=== PATIENT | female | born 1930 | race Caucasian/White ===

== ENCOUNTER 2017-06-04 16:30 | Outpatient (CLI) | payer MEDICARE, OTHER | END 2017-06-04 16:31 | disposition critical access hospital (66) | LOC: EMS 16:30 | PROVIDERS: ATTEND Surgery | DX: R07.9 Chest pain, unspecified (principal) | CPT/HCPCS: A0425; A0427 ==

== ENCOUNTER 2017-06-04 17:07 | Emergency (ER) | payer MEDICARE, OTHER ==
--- NOTE | 2017-06-04 17:27 | ED Physician Documentation ---
PD HPI CHEST PAIN - Stated complaint Stated Complaint: CP - Chief complaint Chief Complaint: Cardiac - History obtained from History obtained from: Patient, Family, EMS - History of Present Illness Timing - onset: Other (This is an 86-year-old woman who since last night is having positional lightheadedness worse when she stands up. Today she has had on and off chest pressure not associated with shortness of breath or pain per se. She does have a mild frontal headache with this. 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 HEENT: Other - Present Medications Home Medications: Ambulatory Orders Medication Instructions Recorded Confirmed Albuterol Sulfate [Proair Hfa 1 - 2 puffs INH Q4H PRN 08/19/16 06/04/17 Inhaler] Fluticasone/Salmeterol [Advair 1 each IH DAILY 08/19/16 06/04/17 250-50 Diskus] Levalbuterol [Xopenex] 1.25 mg INH Q4H PRN #0 neb 08/20/16 06/04/17 Nitroglycerin [Nitrostat] 0.4 mg SL Q5MIN PRN #2 tablet 08/20/16 06/04/17 Saccharomyces Boulardii [Florastor] 250 mg PO BID 10 Days 08/20/16 06/04/17 levoFLOXacin [Levaquin] 250 mg PO DAILY #8 tablet 08/20/16 06/04/17 prednisoLONE 1% OPHTH DROPS [Pred 1 drops LEFTEYE Q4H 08/20/16 06/04/17 Forte 1% Ophth Drops] prednisoLONE 1% OPHTH DROPS [Pred 1 drops LEFTEYE Q4H bottle 08/20/16 06/04/17 Forte 1% Ophth Drops] - Allergies Allergies/Adverse Reactions: Allergies Allergy/AdvReac Type Severity Reaction Status Date / Time Penicillins Allergy Edema Verified 06/04/17 17:11 - Social History Does the pt smoke?: No Smoking Status: Never smoker Does the pt drink ETOH?: No Does the pt have substance abuse?: No - Immunizations Immunizations are current?: No Immunizations: TDAP >10years/unknown PD ED PE NORMAL - Vitals Vital signs reviewed: Yes - General General: Alert and oriented X 3, No acute distress - HEENT HEENT: PERRL, EOMI - Neck Neck: Supple, no meningeal sign, No bony TTP - Cardiac Cardiac: RRR, No murmur - Respiratory Respiratory: No respiratory distress, Clear bilaterally - Abdomen Abdomen: Soft, Non tender - Back Back: No CVA TTP, No spinal TTP - Derm Derm: Normal color, Warm and dry - Extremities Extremities: No edema, No calf tenderness / cord - Neuro Neuro: Alert and oriented X 3, No motor deficit, No sensory deficit, Normal speech - Psych Psych: Normal mood, Normal affect Results - Vitals Vitals: Vital Signs - 24 hr 06/04/17 06/04/17 06/04/17 17:08 17:38 18:22 Temperature 36.4 C L Heart Rate 69 67 65 Respiratory 20 14 18 Rate Blood Pressure 185/80 H 166/62 H 201/79 H Blood Pressure 167/82 H [Left] Blood Pressure 164/74 H [Right] O2 Saturation 95 98 98 Oxygen O2 Source Room air - EKG (time done) 1718 Rate: Rate (enter#) (64) Rhythm: NSR [place]: Normal Intervals: Normal HI QRS: Normal Ischemia: Normal ST segments Computer interpretation: Agree with computer - Labs Labs: Laboratory Tests 06/04/17 06/04/17 06/04/17 17:35 17:35 17:35 WBC 5.6 RBC 4.61 Hgb 13.2 Hct 39.5 MCV 85.7 MCH 28.6 MCHC 33.4 RDW 14.6 Plt Count 216 MPV 8.9 Neut # 3.2 Lymph # 1.6 Glascock # 0.5 Eos # 0.2 Baso # 0.1 Absolute Nucleated RBC 0.00 Nucleated RBCs 0.0 Sodium 141 Potassium 3.9 Chloride 103 Carbon Dioxide 32 Anion Gap 6.0 BUN 17 Creatinine 0.8 Estimated GFR (MDRD) 68 L Glucose 88 Calcium 9.4 Total Bilirubin 0.8 AST 24 ALT 18 Alkaline Phosphatase 68 Troponin I < 0.04 Total Protein 7.0 Albumin 4.1 Globulin 2.9 Albumin/Globulin Ratio 1.4 Lipase 52 H - Rads (name of study) 2v chest Radiology: EMP read contemporaneously (Chronic RML opacities) Ct head Radiology: EMP read contemporaneously (atrophy NAD) PD MEDICAL DECISION MAKING - ED course Complexity details: reviewed old records (Admission for similar symptoms in August of last year without pertinent findings, she says she followed up with a vessel crew member after that without a specific diagnosis.) ED course: 86-year-old woman with some disequilibrium and dizziness with mild chest pressure. Workup in the emergency department consisted of a head CT, chest x- ray, and labs without abnormal findings. Her chest pressure resolved and she walked up and down the hallway without unsteadiness. We discussed potentially an observation stay for serial enzymes and MRI which the patient refused. She will return if worse. Departure - Departure Disposition: Home, Self Care Clinical Impression: Near syncope Chest pain Qualifiers: Chest pain type: unspecified Qualified Code(s): R07.9 - Chest pain, unspecified Condition: Good Record reviewed to determine appropriate education?: Yes Instructions: ED Chest Pain Atypical Unkn Cause Comments: Return immediately if pain recurs or if you have other new symptoms or worsen in any way. Otherwise follow-up with your physician, next available appointment. Your blood pressure was elevated today on check into the emergency department. This does not mean that you have hypertension, it is a common phenomenon to come to the emergency department and have elevated blood pressure. I recommend that she see her primary care physician within the week to have it rechecked when you are feeling better.
[2017-06-04 17:44] LABS: BASOPHILS # (AUTO) 0.1 10^3/uL (0.0-0.1); BASOPHILS % (AUTO) 0.9 %; EOSINOPHILS # (AUTO) 0.2 10^3/uL (0.0-0.7); EOSINOPHILS % (AUTO) 3.9 %; HCT - HEMATOCRIT 39.5 % (37.0-47.0); HGB - HEMOGLOBIN 13.2 g/dL (12.0-16.0); LYMPHOCYTES # (AUTO) 1.6 10^3/uL (1.5-3.5); LYMPHOCYTES % (AUTO) 28.3 %; MEAN CORPUSCULAR HEMOGLOBIN 28.6 pg (27.0-31.0); MEAN CORPUSCULAR HGB CONC 33.4 g/dL (32.0-36.0); MEAN CORPUSCULAR VOLUME 85.7 fL (81.0-99.0); MEAN PLATELET VOLUME 8.9 fL (7.9-10.8); MONOCYTES # (AUTO) 0.5 10^3/uL (0.0-1.0); MONOCYTES % (AUTO) 9.6 %; NEUTROPHILS # (AUTO) 3.2 10^3/uL (1.5-6.6); NEUTROPHILS % (AUTO) 57.3 %; RED BLOOD COUNT 4.61 10^6/uL (4.20-5.40); RED CELL DISTRIBUTION WIDTH 14.6 % (12.0-15.0); UNCORRECTED WHITE BLOOD COUNT 5.6 x10^3/uL; WHITE BLOOD COUNT 5.6 x10^3/uL (4.8-10.8)
[2017-06-04 17:55] LABS: ALBUMIN/GLOBULIN RATIO 1.4 (1.0-2.2); BILIRUBIN,TOTAL 0.8 mg/dL (0.2-1.0); CALCIUM 9.4 mg/dL (8.5-10.3); CREATININE 0.8 mg/dL (0.4-1.0); POTASSIUM 3.9 mmol/L (3.5-5.0)
--- NOTE | 2017-06-04 18:35 | XRAY Preliminary Report ---
Exam: XR Chest 2 View PA/LAT IMPRESSION: No acute abnormalities or interval change. Chronic right middle lobe opacities noted. [facility] SITE ID: [id number]
--- NOTE | 2017-06-04 18:38 | CT Preliminary Report ---
Exam: CT Head W/O IMPRESSION: Stable age-related cortical atrophic changes without evidence of acute intracranial abnor mality. [facility] SITE ID: [id number]
--- NOTE | 2017-06-04 18:38 | XRAY Report ---
EXAM: CHEST RADIOGRAPHY EXAM DATE: 06/04/2017 06:06 PM. CLINICAL HISTORY: Chest pain. COMPARISON: 08/19/2016. TECHNIQUE: 2 views. FINDINGS: Lungs/Pleura: Chronic right middle lobe opacities, otherwise no focal opacities evident. No pleural e ffusion. No pneumothorax. Normal volumes. Mediastinum: Heart and mediastinal contours are unremarkable. Other: The patient has had right breast surgery. No compression fractures. IMPRESSION: No acute abnormalities or interval change. Chronic right middle lobe opacities noted. [facility] Referring Provider Line: [phone] SITE ID: [id number]
--- NOTE | 2017-06-04 18:40 | CT Report ---
EXAM: CT HEAD EXAM DATE: 06/04/2017 06:15 PM. CLINICAL HISTORY: Dizzy since yesterday. COMPARISON: 02/21/2008. TECHNIQUE: Multiaxial CT images were obtained from the foramen magnum to the vertex. IV contrast: Non e. Reformats: Coronal. In accordance with CT protocol optimization, one or more of the following dose reduction techniques w ere utilized for this exam: automated exposure control, adjustment of mA and/or KV based on patient s ize, or use of iterative reconstructive technique. FINDINGS: Parenchyma: No intraparenchymal hemorrhage. No evidence of mass, midline shift, or CT findings of acu te infarction. Christy-white differentiation is distinct. Extraaxial Spaces: Normal for age. No subdural or epidural collections identified. Ventricles: The ventricles and cortical sulci are prominent, consistent with age-related tissue loss. Sinuses: Imaged paranasal sinuses, orbits, and mastoids show no significant abnormality. Bones: No evidence of fracture or calvarial defect. Other: Stable mild chronic microangiopathic white matter changes are evident. IMPRESSION: Stable age-related cortical atrophic changes without evidence of acute intracranial abnor mality. [facility] Referring Provider Line: [phone] SITE ID: [id number]
[2017-06-04 19:39] VITALS: BP 175/91
== END 2017-06-04 19:39 | disposition home or self-care (01) ==
LOC: EDUNIT# → ED 17:07
DX: R55 Syncope and collapse (principal); R07.9 Chest pain, unspecified; R03.0 Elevated blood-pressure reading, without diagnosis of hypertension
CPT/HCPCS: 36415; 70450; 71020; 80053; 81001; 81003; 83690; 84484; 85025; 87086; 93005; 99284; 99285

== ENCOUNTER 2017-10-13 18:39 | Emergency (ER) | payer MEDICARE, OTHER ==
[2017-10-13 19:33] LABS: UA w/ MICROSCOPIC CHARGE YES
[2017-10-13] MEDS ORDERED: SODIUM CHLORIDE 0.9% 1,000 ML IV ONE (21:05)
[2017-10-13 21:41] LABS: BASOPHILS % (AUTO) 0.3 %; EOSINOPHILS # (AUTO) 0.2 10^3/uL (0.0-0.7); EOSINOPHILS % (AUTO) 1.2 %; HCT - HEMATOCRIT 37.2 % (37.0-47.0); HGB - HEMOGLOBIN 12.1 g/dL (12.0-16.0); LYMPHOCYTES # (AUTO) 0.9 10^3/uL (1.5-3.5); LYMPHOCYTES % (AUTO) 6.8 %; MEAN CORPUSCULAR HEMOGLOBIN 27.8 pg (27.0-31.0); MEAN CORPUSCULAR HGB CONC 32.5 g/dL (32.0-36.0); MEAN CORPUSCULAR VOLUME 85.7 fL (81.0-99.0); MONOCYTES # (AUTO) 1.2 10^3/uL (0.0-1.0); MONOCYTES % (AUTO) 9.2 %; NEUTROPHILS # (AUTO) 10.4 10^3/uL (1.5-6.6); NEUTROPHILS % (AUTO) 82.5 %; RED BLOOD COUNT 4.34 10^6/uL (4.20-5.40); RED CELL DISTRIBUTION WIDTH 14.1 % (12.0-15.0); UNCORRECTED WHITE BLOOD COUNT 12.6 x10^3/uL; WHITE BLOOD COUNT 12.6 x10^3/uL (4.8-10.8)
[2017-10-13 21:46] LABS: CALCIUM 8.9 mg/dL (8.5-10.3); CREATININE 0.7 mg/dL (0.4-1.0); POTASSIUM 3.9 mmol/L (3.5-5.0)
[2017-10-13] MEDS ORDERED: IOPAMIDOL-300 100 ML VIAL ONE (21:55)
[2017-10-13] MEDS ORDERED: IOPAMIDOL-300 100 ML VIAL IVP ONE (22:09)
--- NOTE | 2017-10-13 22:42 | CT Preliminary Report ---
Exam: CT ABDOMEN/PELVIS ANGIO IMPRESSION: 1. No aortic aneurysm or dissection. 2. 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 3. Sigmoid diverticulitis. No abscess seen. 4. Small hiatal hernia. 5. Mild left lower lobe infiltrate. [facility] SITE ID: [id number]
--- NOTE | 2017-10-13 22:45 | CT Report ---
EXAM: CT ANGIOGRAM ABDOMEN AND PELVIS WITH CONTRAST EXAM DATE: 10/13/2017 10:12 PM. CLINICAL HISTORY: Abdominal pain and back pain. COMPARISONS: 12/10/2012 and 12/10/2012. TECHNIQUE: Routine helical CT angiogram imaging was performed through the abdomen and pelvis in the a rterial phase. IV contrast: 100ML ISOVUE 300. Enteric contrast: No. Reconstructions: Coronal, sagitta l, and 3D MIP reconstructions. In accordance with CT protocol optimization, one or more of the following dose reduction techniques w ere utilized for this exam: automated exposure control, adjustment of mA and/or KV based on patient s ize, or use of iterative reconstructive technique. FINDINGS: Vasculature: There is mild atherosclerosis. No abdominal aortic aneurysm or dissection is seen. No si gnificant stenosis is seen in the celiac axis, superior mesenteric artery, left renal artery, inferio r mesenteric artery, or bilateral iliac arteries. There is moderate stenosis at the origin of the rig ht renal artery. Lung Bases: Bibasilar atelectasis or scarring. Mild left lower lobe infiltrate. Small hiatal hernia. Abdominal Solid Organs: No focal lesions are seen in the liver, spleen, pancreas, adrenals, or kidney s on these arterial phase images. Status post cholecystectomy. Peritoneal Cavity: There are colonic diverticula. Sigmoid diverticulitis is seen. No diverticular abs cess is identified. No bowel obstruction is seen. No free air is identified. There is trace free flui d in the pelvis. No lymphadenopathy is seen. There is moderate stool in the colon, right greater than left. Appendix is not well seen. No evidence of appendicitis is noted. Pelvic Organs: Uterus is surgically absent. Visualized pelvic organs are otherwise unremarkable. Bones: Osteopenia. Degenerative changes and scoliosis in the spine. Other: None. IMPRESSION: 1. No aortic aneurysm or dissection. 2. 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 3. Sigmoid diverticulitis. No abscess seen. 4. Small hiatal hernia. 5. Mild left lower lobe infiltrate. [facility] Referring Provider Line: [phone] SITE ID: [id number]
[2017-10-13] MEDS ORDERED: CIPROFLOXACIN 250 MG TABLET PO STA (22:54)
[2017-10-13] MEDS ORDERED: metroNIDAZOLE 250 MG TABLET PO STA (22:54)
[2017-10-13 23:01] VITALS: BP 143/79
--- NOTE | 2017-10-13 23:09 | ED Physician Documentation ---
History of Present Illness - Stated complaint Stated Complaint: FEMALE - Chief complaint Chief Complaint: General - History obtained from History obtained from: Patient (p-t is here for lower abdominal pain and back pain. she staes that 2 weeks ago she had the start of the symptoms, She was diagnosed with a UTI by her primary care provider and was given ABX. She staes that her symptoms did not get better. she was then given another ABX which also did not help. she did not know the medications. she states she took a medication from the pharmacy today for the pain. no fevers, no nausea or vomiting.) Review of Systems Constitutional: denies: Fever, Chills Cardiac: denies: Chest pain / pressure Respiratory: denies: Dyspnea, Cough, Hemoptysis GI: reports: Abdominal Pain. denies: Nausea, Vomiting, Constipation, Diarrhea, Bloody / black stool : reports: Frequency. denies: Unable to Void, Incontinent, Hematuria, Vaginal bleeding Skin: denies: Rash, Lesions, Laceration (s) Musculoskeletal: reports: Back pain. 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 HEENT: Other - Present Medications Home Medications: Ambulatory Orders Medication Instructions Recorded Confirmed Albuterol Sulfate [Proair Hfa 1 - 2 puffs INH Q4H PRN 08/19/16 10/13/17 Inhaler] Fluticasone/Salmeterol [Advair 1 each IH DAILY 08/19/16 10/13/17 250-50 Diskus] Nitroglycerin [Nitrostat] 0.4 mg SL Q5MIN PRN #2 tablet 08/20/16 10/13/17 prednisoLONE 1% OPHTH DROPS [Pred 1 drops LEFTEYE Q4H 08/20/16 10/13/17 Forte 1% Ophth Drops] Ciprofloxacin HCl [Cipro] 500 mg PO BID #20 tablet 10/13/17 Metronidazole [Flagyl] 500 mg PO BID #20 tablet 10/13/17 - Allergies Allergies/Adverse Reactions: Allergies Allergy/AdvReac Type Severity Reaction Status Date / Time Penicillins Allergy Edema Verified 06/04/17 17:11 - Social History Does the pt smoke?: No Smoking Status: Never smoker Does the pt drink ETOH?: No Does the pt have substance abuse?: No - Immunizations Immunizations are current?: No Immunizations: TDAP >10years/unknown PD ED PE NORMAL - Vitals Vital signs reviewed: Yes - General General: Alert and oriented X 3, No acute distress, Well developed/nourished - Cardiac Cardiac: RRR, No murmur - Respiratory Respiratory: No respiratory distress, Clear bilaterally - Abdomen Abdomen: Soft, Non tender, Non distended - Back Back: No CVA TTP - Derm Derm: Normal color, No rash - Extremities Extremities: No deformity, No calf tenderness / cord - Neuro Neuro: Alert and oriented X 3 Eye Opening: Spontaneous Motor: Obeys Commands Verbal: Oriented GCS Score: 15 - Psych Psych: Normal mood, Normal affect Results - Vitals Vitals: Vital Signs - 24 hr 10/13/17 10/13/17 10/13/17 18:57 20:28 22:03 Temperature 37.2 C Heart Rate 86 85 86 Respiratory 17 22 17 Rate Blood Pressure 160/88 H 149/78 H 145/78 H O2 Saturation 97 94 95 10/13/17 23:00 Temperature Heart Rate 94 Respiratory 16 Rate Blood Pressure 143/79 H O2 Saturation 96 Oxygen O2 Source Room air - Labs Labs: Laboratory Tests 10/13/17 10/13/17 10/13/17 18:50 21:27 21:27 WBC 12.6 H RBC 4.34 Hgb 12.1 Hct 37.2 MCV 85.7 MCH 27.8 MCHC 32.5 RDW 14.1 Plt Count 256 MPV 9.0 Neut # 10.4 H Lymph # 0.9 L Cottle # 1.2 H Eos # 0.2 Baso # 0.0 Absolute Nucleated RBC 0.00 Nucleated RBC % 0.0 Sodium 137 Potassium 3.9 Chloride 99 L Carbon Dioxide 30 Anion Gap 8.0 BUN 15 Creatinine 0.7 Estimated GFR (MDRD) 80 L Glucose 123 H Lactic Acid Calcium 8.9 Urine Color ORANGE Urine Clarity CLEAR Urine pH Ur Specific [place] Urine Protein Urine Glucose (UA) Urine Ketones Urine Occult Blood Urine Nitrite Urine Bilirubin Urine Urobilinogen Ur Leukocyte Esterase Urine RBC 0-5 Urine WBC 4-5 Ur Squamous Epith Cells NONE SEEN Urine Bacteria None Seen Ur Microscopic Review INDICATED Urine Culture Comments Not Reportable 10/13/17 21:27 WBC RBC Hgb Hct MCV MCH MCHC RDW Plt Count MPV Neut # Lymph # Cottle # Eos # Baso # Absolute Nucleated RBC Nucleated RBC % Sodium Potassium Chloride Carbon Dioxide Anion Gap BUN Creatinine Estimated GFR (MDRD) Glucose Lactic Acid 0.8 Calcium Urine Color Urine Clarity Urine pH Ur Specific [place] Urine Protein Urine Glucose (UA) Urine Ketones Urine Occult Blood Urine Nitrite Urine Bilirubin Urine Urobilinogen Ur Leukocyte Esterase Urine RBC Urine WBC Ur Squamous Epith Cells Urine Bacteria Ur Microscopic Review Urine Culture Comments - Rads (name of study) CT abd/pelvis Radiology: Final report received, EMP read contemporaneously PD MEDICAL DECISION MAKING - ED course Complexity details: re-evaluated patient, considered differential, d/w patient, d/w family ED course: unable to perform UA because of the medication she took today. Pt did not know the prior ABX that she was on. CT positive for diverticulitis. pt has no blood in the stool. Clinically does not have PNA. discussed with the patient. Will treat with cipro and flagyl. Cipro should also cover any possible UTI. she was given return precautions. Pt expressed understanding. Departure - Departure Disposition: 01 Home, Self Care Clinical Impression: Diverticulitis Condition: Good Instructions: ED Diverticulitis Follow-Up: Pat Craven ARNP [Primary Care Provider] - Prescriptions: Ciprofloxacin HCl [Cipro] 500 mg PO BID #20 tablet Metronidazole [Flagyl] 500 mg PO BID #20 tablet Comments: take your medications as instructed. Call your primary care provider tomorrow for a follow up in the next week. Return to the ER for any new or worsening symptoms.
== END 2017-10-13 23:35 | disposition home or self-care (01) ==
LOC: ED 18:39
DX: K57.32 Diverticulitis of large intestine without perforation or abscess without bleeding (principal); J45.909 Unspecified asthma, uncomplicated
CPT/HCPCS: 36415; 74174; 80048; 81001; 83605; 85025; 96360; 99283; 99284; A9270; Q9967; 81003; 87086

== ENCOUNTER 2018-12-20 14:52 | Outpatient (CLI) | payer MEDICARE, OTHER ==
--- NOTE | 2018-12-20 17:19 | Ultrasound Report ---
Reason: NECK MASS,HOARSENESS OF VOICE Procedure Date: 12/20/2018 Accession Number: [id number] / [id number] Procedure: US - Head or Neck Soft Tissue CPT Code: FULL RESULT: EXAM: HEAD AND NECK SOFT TISSUE ULTRASOUND EXAM DATE: 12/20/2018 03:06 PM. CLINICAL HISTORY: NECK MASS,HOARSENESS OF VOICE. COMPARISON: None. TECHNIQUE: Real time sonographic imaging of the neck was performed by the ultrasonic hand solderer. Multiple business services representative static images were saved for review. FINDINGS: There are multiple prominent but not pathologically enlarged lymph nodes in the right neck with preserved morphology and fatty hilum. The largest measures 2.4 x 0.9 x 1.3 cm. Another prominent node measures 2.9 x 0.6 x 2.1 cm. The left neck was imaged for comparison with largest node measuring 3.1 x 0.7 x 1.1 cm. No additional lesion identified. No fluid collection. IMPRESSION: Prominent but not pathologically enlarged right neck lymph nodes with preserved morphology may be reactive. Recommend clinical follow-up. [facility]
== END 2018-12-20 14:53 | disposition home or self-care (01) ==
LOC: DI 14:52
PROVIDERS: ATTEND Family Medicine
DX: R59.0 Localized enlarged lymph nodes (principal); R49.0 Dysphonia; Z80.8 Family history of malignant neoplasm of other organs or systems
CPT/HCPCS: 76536

== ENCOUNTER 2019-09-04 14:52 | Outpatient (CLI) | payer MEDICARE, OTHER ==
--- NOTE | 2019-09-05 01:20 | Ultrasound Report ---
Reason: CERVICAL LYMPHADENOPATHY Procedure Date: 09/04/2019 Accession Number: [id number] / [id number] Procedure: US - Head or Neck Soft Tissue CPT Code: Final Report FULL RESULT: EXAM: NECK ULTRASOUND EXAM DATE: 09/04/2019 03:49 PM. CLINICAL HISTORY: CERVICAL LYMPHADENOPATHY. COMPARISON: HEAD OR NECK SOFT TISSUE 12/20/2018 3:06 PM. TECHNIQUE: Real-time sonographic imaging was performed by the medical device sales representative utilizing color-flow. Multiple patient representative static images were saved for review. FINDINGS: Normal size cervical lymph nodes are seen bilaterally, with normal morphology. No adenopathy. No significant interval change. IMPRESSION: Stable normal-appearing cervical lymph nodes. [facility]
== END 2019-09-04 14:53 | disposition home or self-care (01) ==
LOC: DI 14:52
PROVIDERS: ATTEND Physician Assistant
DX: R59.0 Localized enlarged lymph nodes (principal)
CPT/HCPCS: 76536

== ENCOUNTER 2019-09-04 15:47 | Emergency (ER) | payer MEDICARE, OTHER ==
[2019-09-04 15:57] VITALS: BP 141/90
--- NOTE | 2019-09-04 15:59 | ED Physician Documentation ---
PD HPI ABD PAIN - Stated complaint Stated Complaint: UNABLE TO DEFICATE - Chief complaint Chief Complaint: Abd Pain - History obtained from History obtained from: Patient - History of Present Illness Timing - onset: Other (She traveled to [place] about a week ago. Otherwise she is had no recent changes in her life or medications. She been having trouble with constipation. Had some small hard turds and then some liquid on Thursday. Other than that has not had a good bowel movement since despite taking prunes and bran muffins. No vomiting. 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 HEENT: Other - Present Medications Home Medications: Ambulatory Orders Medication Instructions Recorded Confirmed Albuterol Sulfate [Proair Hfa 1 - 2 puffs INH Q4H PRN 08/19/16 10/13/17 Inhaler] Fluticasone/Salmeterol [Advair 1 each IH DAILY 08/19/16 10/13/17 250-50 Diskus] Nitroglycerin [Nitrostat] 0.4 mg SL Q5MIN PRN #2 tablet 08/20/16 10/13/17 Ciprofloxacin HCl [Cipro] 500 mg PO BID #14 tablet 09/04/19 Lactulose [Generlac] 10 gm PO Q6H PRN #200 ml 09/04/19 Metronidazole [Flagyl] 500 mg PO TID #20 tablet 09/04/19 - Allergies Allergies/Adverse Reactions: Allergies Allergy/AdvReac Type Severity Reaction Status Date / Time Penicillins Allergy Edema Verified 09/04/19 15:53 - Social History Does the pt smoke?: No Smoking Status: Never smoker Does the pt drink ETOH?: No Does the pt have substance abuse?: No - Immunizations Immunizations are current?: No Immunizations: TDAP >10years/unknown PD ED PE NORMAL - Vitals Vital signs reviewed: Yes - General General: Alert and oriented X 3, No acute distress - Cardiac Cardiac: RRR, No murmur - Abdomen Abdomen: Normal bowel sounds, Soft, Non tender - Female Female : Other (Rectal and buttock exam done with Nicolasa RN, she had a little pimple that was expressed on the right buttock, no cellulitis. She had no fecal impaction.) - Neuro Neuro: Alert and oriented X 3, Normal speech - Psych Psych: Normal mood, Normal affect Results - Vitals Vitals: Vital Signs - 24 hr 09/04/19 15:51 Temperature 36.7 C Heart Rate 85 Respiratory 20 Rate Blood Pressure 141/90 H O2 Saturation 97 Oxygen O2 Source Room air PD MEDICAL DECISION MAKING - ED course ED course: She presents with constipation. No abdominal tenderness or fecal impaction. She is given magnesium citrate for that. There is also a buttock abscess. Quite small and was expressed fully during exam, placed on Cipro and Flagyl. Departure - Departure Disposition: 01 Home, Self Care Clinical Impression: Abscess of right buttock Constipation Qualifiers: Constipation type: unspecified constipation type Qualified Code(s): K59.00 - Constipation, unspecified Condition: Good Record reviewed to determine appropriate education?: Yes Instructions: ED Staph Infec Abx Tx Only, ED Constipation Prescriptions: Ciprofloxacin HCl [Cipro] 500 mg PO BID #14 tablet Lactulose [Generlac] 10 gm PO Q6H PRN #200 ml PRN Reason: Constipation Metronidazole [Flagyl] 500 mg PO TID #20 tablet Comments: Call your doctor to arrange a follow-up appointment, make the next available appointment. In the interim, return anytime if worse or if new symptoms develop.
[2019-09-04] MEDS ORDERED: metroNIDAZOLE 250 MG TABLET PO STA (16:08)
[2019-09-04] MEDS ORDERED: CIPROFLOXACIN 250 MG TABLET PO STA (16:08)
[2019-09-04] MEDS ORDERED: MAGNESIUM CITRATE 296 ML BOTTLE PO STA (16:08)
== END 2019-09-04 16:15 | disposition home or self-care (01) ==
LOC: ED 15:47
DX: K59.00 Constipation, unspecified (principal); L02.31 Cutaneous abscess of buttock; R59.0 Localized enlarged lymph nodes
CPT/HCPCS: 76536; 99282; 99283; A9270

== ENCOUNTER 2019-09-26 20:05 | Emergency (ER) | payer MEDICARE, OTHER ==
[2019-09-26 20:36] LABS: BASOPHILS % (AUTO) 0.5 %; EOSINOPHILS # (AUTO) 0.3 10^3/uL (0.0-0.7); EOSINOPHILS % (AUTO) 4.8 %; LYMPHOCYTES # (AUTO) 1.8 10^3/uL (1.5-3.5); LYMPHOCYTES % (AUTO) 27.2 %; MEAN CORPUSCULAR HEMOGLOBIN 28.6 pg (27.0-31.0); MEAN CORPUSCULAR HGB CONC 31.4 g/dL (32.0-36.0); MEAN CORPUSCULAR VOLUME 91.2 fL (81.0-99.0); MEAN PLATELET VOLUME 10.6 fL (7.9-10.8); MONOCYTES # (AUTO) 0.8 10^3/uL (0.0-1.0); MONOCYTES % (AUTO) 11.8 %; NEUTROPHILS # (AUTO) 3.6 10^3/uL (1.5-6.6); NEUTROPHILS % (AUTO) 55.5 %; PLT - PLATELET COUNT 249 10^3/uL (130-450); RED BLOOD COUNT 4.54 10^6/uL (4.20-5.40); WHITE BLOOD COUNT 6.4 x10^3/uL (4.8-10.8)
[2019-09-26 20:49] LABS: ALBUMIN 3.9 g/dL (3.2-5.5); BILIRUBIN,TOTAL 0.6 mg/dL (0.2-1.0); CALCIUM 9.6 mg/dL (8.5-10.3); CREATININE 0.8 mg/dL (0.4-1.0); TOTAL PROTEIN 7.7 g/dL (6.7-8.2)
--- NOTE | 2019-09-26 20:53 | XRAY Report ---
Reason: CP, SOA, cough Procedure Date: 09/26/2019 Accession Number: [id number] / [id number] Procedure: XR - Chest 2 View X-Ray CPT Code: 41391 Final Report FULL RESULT: EXAM: CHEST RADIOGRAPHY EXAM DATE: 09/26/2019 08:28 PM. CLINICAL HISTORY: Chest pain, shortness of breath, cough. COMPARISON: CHEST 2 VIEW PA/LAT 06/04/2017 5:53 PM. ABDOMEN/PELVIS ANGIO 10/13/2017 10:03 PM. TECHNIQUE: 2 views. FINDINGS: Lungs/Pleura: Increased lung volumes. Stable scarring and/or atelectasis at the right lung base. No lung consolidation, pleural effusion or pneumothorax. Mediastinum: Heart and mediastinal contours are unremarkable. Other: None. IMPRESSION: No acute pulmonary airspace disease. [facility]
--- NOTE | 2019-09-26 21:02 | ED Physician Documentation ---
History of Present Illness - Stated complaint Stated Complaint: CP/BACK PX - Chief complaint Chief Complaint: Resp - Additonal information Additional information: This is an 89-year-old female with a history of asthma who presents with cough, congestion for several days, as well as some chest pain and back discomfort that began over the last 2 days. Patient states that her symptoms began with a cough which has largely been nonproductive, and today she has felt increasingly wheezy. She took her albuterol inhaler and this provided only mild relief earlier in the day. She noticed some chest discomfort that seemed to begin after she coughed, and when she presses in on her chest on the her right side just to the right of her sternum she has soreness in that region. She also has some soreness right side of her back if she presses and lateral to her spine. She has not tried taking any medications for this. She denies any hemoptysis, leg swelling, she states she is never been diagnosed with a heart attack, she had a stress test 2 years ago which was reassuring. 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 HEENT: Other - Present Medications Home Medications: Ambulatory Orders Medication Instructions Recorded Confirmed Albuterol Sulfate [Proair Hfa 1 - 2 puffs INH Q4H PRN 08/19/16 10/13/17 Inhaler] Fluticasone/Salmeterol [Advair 1 each IH DAILY 08/19/16 10/13/17 250-50 Diskus] Nitroglycerin [Nitrostat] 0.4 mg SL Q5MIN PRN #2 tablet 08/20/16 10/13/17 Ciprofloxacin HCl [Cipro] 500 mg PO BID #14 tablet 09/04/19 Lactulose [Generlac] 10 gm PO Q6H PRN #200 ml 09/04/19 Metronidazole [Flagyl] 500 mg PO TID #20 tablet 09/04/19 - Allergies Allergies/Adverse Reactions: Allergies Allergy/AdvReac Type Severity Reaction Status Date / Time Penicillins Allergy Edema Verified 09/04/19 15:53 - Social History Does the pt smoke?: No Smoking Status: Never smoker Does the pt drink ETOH?: No Does the pt have substance abuse?: No - Immunizations Immunizations are current?: No Immunizations: TDAP >10years/unknown PD ED PE NORMAL - Vitals Vital signs reviewed: Yes - General General: Alert and oriented X 3, No acute distress - HEENT HEENT: PERRL - Neck Neck: Supple, no meningeal sign - Cardiac Cardiac: RRR - Respiratory Respiratory: No respiratory distress, Clear bilaterally, Other (Chest birch normal in appearance over the right sternal border in the mid to lower sternum reproducible tenderness with palpation, No crepitus) - Abdomen Abdomen: Soft, Non tender, Non distended - Derm Derm: Warm and dry - Extremities Extremities: No deformity - Neuro Neuro: Alert and oriented X 3 - Psych Psych: Normal mood, Normal affect Results - Vitals Vitals: Oxygen O2 Source Room air - EKG (time done) 20:14 Other comments: Other comments (Rate 76, rhythm sinus, there is no ST segment elevation or depression, no abnormal T wave inversions, intervals are within normal limits) - Labs Labs: Microbiology 09/26/19 21:00 Urine Culture - Preliminary Urine,Clean Catch CULTURE IN PROGRESS. RESULTS TO FOLLOW. Laboratory Tests 09/26/19 09/26/19 09/26/19 20:28 20:28 20:28 WBC 6.4 RBC 4.54 Hgb 13.0 Hct 41.4 MCV 91.2 MCH 28.6 MCHC 31.4 L RDW 14.0 Plt Count 249 MPV 10.6 Neut # (Auto) 3.6 Lymph # (Auto) 1.8 Elk # (Auto) 0.8 Eos # (Auto) 0.3 Baso # (Auto) 0.0 Absolute Nucleated RBC 0.00 Nucleated RBC % 0.0 Sodium 141 Potassium 4.2 Chloride 101 Carbon Dioxide 31 Anion Gap 9.0 BUN 17 Creatinine 0.8 Estimated GFR (MDRD) 68 L Glucose 95 Calcium 9.6 Total Bilirubin 0.6 AST 24 ALT 18 Alkaline Phosphatase 54 Troponin I High Sens 6.0 Total Protein 7.7 Albumin 3.9 Globulin 3.8 Albumin/Globulin Ratio 1.0 Lipase 61 H Urine Color Urine Clarity Urine pH Ur Specific [place] Urine Protein Urine Glucose (UA) Urine Ketones Urine Occult Blood Urine Nitrite Urine Bilirubin Urine Urobilinogen Ur Leukocyte Esterase Urine RBC Urine WBC Ur Squamous Epith Cells Urine Bacteria Ur Microscopic Review Urine Culture Comments 09/26/19 21:00 WBC RBC Hgb Hct MCV MCH MCHC RDW Plt Count MPV Neut # (Auto) Lymph # (Auto) Elk # (Auto) Eos # (Auto) Baso # (Auto) Absolute Nucleated RBC Nucleated RBC % Sodium Potassium Chloride Carbon Dioxide Anion Gap BUN Creatinine Estimated GFR (MDRD) Glucose Calcium Total Bilirubin AST ALT Alkaline Phosphatase Troponin I High Sens Total Protein Albumin Globulin Albumin/Globulin Ratio Lipase Urine Color YELLOW Urine Clarity CLEAR Urine pH 7.0 Ur Specific [place] 1.010 Urine Protein NEGATIVE Urine Glucose (UA) NEGATIVE Urine Ketones NEGATIVE Urine Occult Blood NEGATIVE Urine Nitrite NEGATIVE Urine Bilirubin NEGATIVE Urine Urobilinogen 0.2 (NORMAL) Ur Leukocyte Esterase SMALL H Urine RBC 0-5 Urine WBC 0-3 Ur Squamous Epith Cells RARE Squamous Urine Bacteria None Seen Ur Microscopic Review INDICATED Urine Culture Comments INDICATED - Rads (name of study) CXR Radiology: Other (No acute pulmonary airspace disease) PD MEDICAL DECISION MAKING - ED course Complexity details: considered differential (Bronchitis, pneumonia, rib fracture, pneumothorax, ACS, strain, sprain, dysrhythmia, dissection) ED course: On arrival patient is nontoxic-appearing. Patient's EKG does not show any signs of ischemia or dysrhythmia, chest x-ray shows no acute cardiopulmonary abnormality, the nature of her pain and the fact that it has completely resolved makes dissection highly unlikely, and her mediastinum is not widened. Her troponin is negative, this is a high-sensitivity troponin and her chest pain has been ongoing for 48 hours, making ACS unlikely. The fact that her pain is reproducible over her chest and back with palpation also suggest a musculoskeletal cause. PE was considered, however patient has no symptoms of DVT, no history of blood clots, the chest discomfort she had was not pleuritic in nature, it resolved, she has no tachycardia or hypoxia, making PE highly unlikely. I discussed these results with the patient, but also emphasized that ruling out any cardiac related cause of her pain is very important, and I offered her admission to the hospital. She declines this and would like to follow-up closely with her primary care provider as well as try some supportive care at home. I feel this is reasonable at this time. I discussed strict return precautions with the patient, who agrees to come back in if she has any new, worsening, or not improving symptoms. Patient was discharged home in the care of her family. Departure - Departure Disposition: Home, Self Care Clinical Impression: Chest pain Qualifiers: Chest pain type: unspecified Qualified Code(s): R07.9 - Chest pain, unspecified Condition: Good Instructions: ED Chest Pain Atypical Unkn Cause Follow-Up: Nicolasa Henao PA [Primary Care Provider] - Within 1 week Comments: You were seen today for some chest and back pain. This may be musculoskeletal pain given that she you have areas that are tender to the touch. Your chest x- ray and your labs are reassuring at this time. You may try Tylenol 600 mg every 6 hours, and if this is not effective in controlling your discomfort, you may also use ibuprofen 400 mg every 6 hours. If you have any worsening of her symptoms such as shortness of breath which is not improving with your inhaler, chest or back pain which is not improving or that is worsening, any pain that radiates towards your jaw or left arm, or any other concerning symptoms please return to the emergency department. Even if you are feeling improved please follow-up with your primary care provider within the next week for follow upon your pain and consideration of further testing. You should also have your blood pressure rechecked, it was a bit elevated today, and if remains elevated you should discuss potential treatment with your primary care provider Discharge Date/Time: 09/26/19 23:25
[2019-09-26 21:27] LABS: BILIRUBIN,URINE NEGATIVE (NEGATIVE); GLUCOSE, URINE (UA) NEGATIVE (NEGATIVE); KETONES,URINE (UA) NEGATIVE (NEGATIVE); LEUKOCYTE ESTERASE, URINE SMALL (NEGATIVE); NITRITE,URINE NEGATIVE (NEGATIVE); OCCULT BLOOD,URINE NEGATIVE (NEGATIVE); PROTEIN,URINE NEGATIVE (NEGATIVE); UROBILINOGEN,URINE 0.2 (NORMAL) E.U./dL (NORMAL)
[2019-09-26 21:30] LABS: CLARITY,URINE CLEAR (CLEAR)
[2019-09-26 21:36] LABS: BACTERIA,URINE None Seen /HPF (None Seen); RBC,URINE 0-5 /HPF (0-5); SQUAMOUS EPITHELIAL CELL,UR RARE Squamous (<= Few)
[2019-09-26] MEDS ORDERED: ACETAMINOPHEN 325 MG TABLET PO STA (23:12)
[2019-09-26] MEDS ORDERED: IBUPROFEN 400 MG TABLET PO STA (23:13)
[2019-09-26 23:25] VITALS: BP 163/99
== END 2019-09-26 23:25 | disposition home or self-care (01) ==
LOC: ED 20:05
DX: R07.9 Chest pain, unspecified (principal); M54.9 Dorsalgia, unspecified; J45.909 Unspecified asthma, uncomplicated
CPT/HCPCS: 36415; 71046; 80053; 81001; 83690; 84484; 85025; 87086; 93005; 99283; 99284; A9270; 81003

== ENCOUNTER 2020-07-13 09:10 | Outpatient (CLI) | payer MEDICARE, OTHER ==
--- NOTE | 2020-07-13 10:09 | MRI Report ---
PROCEDURE: Brain W/O INDICATIONS: HEADACHE TECHNIQUE: Noncontrast axial T1 spin echo, axial T2 fast spin echo, sagittal and axial FLAIR, coronal T2 fast sp in echo, axial gradient echo, axial diffusion and ADC through the brain. COMPARISON: CT head 06/04/2017. FINDINGS: Image quality: Excellent. CSF Spaces: Basal cisterns are patent. No extra-axial fluid collections. Ventricles are normal in size and shape. Brain: Advanced global cerebral volume loss with moderate to severe chronic microvascular ischemic c hanges. No intracranial masses or hemorrhage. Christy/white matter interface is normal. Brainstem appe ars normal. Diffusion-weighted images demonstrate no acute ischemic insult. No chronic ischemic ins ults. Normal intravascular flow voids are present. Skull and face: Calvarium has normal marrow signal. Orbits appear normal. Sinuses: Sinuses and mastoids are clear. IMPRESSION: No acute finding. Advanced global cerebral volume loss with moderate to severe chronic microvascular ischemic changes. Reviewed by: Edy Scott MD on 07/13/2020 10:08 AM PDT Approved by: Edy Scott MD on 07/13/2020 10:08 AM PDT Station ID: [id number]
== END 2020-07-13 09:11 | disposition home or self-care (01) ==
LOC: DI 09:10
PROVIDERS: ATTEND Physician Assistant
DX: G31.89 Other specified degenerative diseases of nervous system (principal); I67.82 Cerebral ischemia
CPT/HCPCS: 70551

== ENCOUNTER 2020-09-28 22:24 | Outpatient (CLI) | payer MEDICARE, OTHER | END 2020-09-28 22:25 | disposition critical access hospital (66) | LOC: EMS 22:24 | PROVIDERS: ATTEND Surgery | DX: R07.9 Chest pain, unspecified (principal) | CPT/HCPCS: A0425; A0427 ==

== ENCOUNTER 2020-09-28 22:52 | Emergency (ER) | payer MEDICARE, OTHER ==
--- NOTE | 2020-09-28 23:14 | ED Physician Documentation ---
PD HPI CHEST PAIN - Stated complaint Stated Complaint: CP X 1 WEEK, HURTS TO BREATHE - History obtained from History obtained from: Patient, EMS - History of Present Illness Timing - onset: Enter time (22:00) Timing - onset during: Rest Timing - details: Abrupt onset Pain level max: 10 Pain level now: 4 Quality: Stabbing Location: Substernal Radiation: Other (right chest) Improved by: Nitro, ASA, Other (given SLNTG x 3 by EMS as well as 324mg ASA; chest pain went from /10 to 4/10 after these interventions) Worsened by: Inspiration Associated symptoms: Shortness of air (mild dyspnea x 1.5 weeks) Similar symptoms before: Has not had sx before Recently seen: Not recently seen - Additional information Additional information: BIBA. patient had sudden onset "stabbing" midline chest pain tonight at 10 PM while at home at rest. Pain is pleuritic, improved from /10 to 4/10 en route. Given SLNTG x 3 and 324mg ASA by medics. she notes mild dyspnea x 1.5 weeks Review of Systems Constitutional: denies: Fever, Chills, Sweats Cardiac: reports: Chest pain / pressure. denies: Palpitations, Pedal edema, Calf pain Respiratory: reports: Dyspnea. 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 HEENT: Other - Present Medications Home Medications: Ambulatory Orders Medication Instructions Recorded Confirmed Albuterol Sulfate [Proair Hfa 1 - 2 puffs INH Q4H PRN 08/19/16 09/28/20 Inhaler] Fluticasone Propion/Salmeterol 1 each INH PRN PRN 09/28/20 09/28/20 [[place]ixela 250-50 Inhub] - Allergies Allergies/Adverse Reactions: Allergies Allergy/AdvReac Type Severity Reaction Status Date / Time Penicillins Allergy Edema Verified 09/28/20 23:06 - Social History Does the pt smoke?: No Smoking Status: Never smoker Does the pt drink ETOH?: No Does the pt have substance abuse?: No - Immunizations Immunizations are current?: No Immunizations: TDAP >10years/unknown PD ED PE NORMAL - Vitals Vital signs reviewed: Yes - General General: Alert and oriented X 3, No acute distress, Well developed/nourished - HEENT HEENT: Moist mucous membranes - Neck Neck: Supple, no meningeal sign - Cardiac Cardiac: RRR, No murmur, No gallop, No rub - Respiratory Respiratory: No respiratory distress, Clear bilaterally - Abdomen Abdomen: Soft, Non tender - Derm Derm: Normal color, Warm and dry - Extremities Extremities: No edema Results - Vitals Vitals: Oxygen O2 Source Room air - EKG (time done) No standard instances Rate: Rate (enter#) (81) Rhythm: NSR [place]: Normal Intervals: Normal FL (borderline short FL) QRS: Normal Ischemia: Normal ST segments Other comments: Other comments (PAC) - Labs Labs: Laboratory Tests 09/28/20 09/28/20 09/28/20 23:29 23:29 23:29 WBC 7.7 RBC 4.17 L Hgb 11.7 L Hct 37.6 MCV 90.2 MCH 28.1 MCHC 31.1 L RDW 13.7 Plt Count 267 MPV 10.7 Neut # (Auto) 4.8 Lymph # (Auto) 1.7 Tillman # (Auto) 0.8 Eos # (Auto) 0.3 Baso # (Auto) 0.1 Absolute Nucleated RBC 0.00 Nucleated RBC % 0.0 Sodium 138 Potassium 3.9 Chloride 102 Carbon Dioxide 29 Anion Gap 7.0 BUN 25 H Creatinine 0.9 Estimated GFR (MDRD) 59 L Glucose 105 H Calcium 8.7 Total Bilirubin 0.5 AST 20 ALT 14 Alkaline Phosphatase 73 Troponin I High Sens 5.6 B-Natriuretic Peptide Total Protein 6.8 Albumin 3.6 Globulin 3.2 Albumin/Globulin Ratio 1.1 Lipase 56 H 09/28/20 23:29 WBC RBC Hgb Hct MCV MCH MCHC RDW Plt Count MPV Neut # (Auto) Lymph # (Auto) [place] # (Auto) Eos # (Auto) Baso # (Auto) Absolute Nucleated RBC Nucleated RBC % Sodium Potassium Chloride Carbon Dioxide Anion Gap BUN Creatinine Estimated GFR (MDRD) Glucose Calcium Total Bilirubin AST ALT Alkaline Phosphatase Troponin I High Sens B-Natriuretic Peptide 76 Total Protein Albumin Globulin Albumin/Globulin Ratio Lipase - Rads (name of study) chest xray Radiology: Prelim report reviewed, See rad report CT chest PE study Radiology: Prelim report reviewed, See rad report PD MEDICAL DECISION MAKING - ED course Complexity details: reviewed results, re-evaluated patient, considered differential, d/w patient ED course: with no ED intervention, patient's pain resolved during ED stay. Reassuring and nondiagnostic test results including EKG, blood tests, CXR, and CT chest. Departure - Departure Disposition: 01 Home, Self Care Clinical Impression: Chest pain Qualifiers: Chest pain type: unspecified Qualified Code(s): R07.9 - Chest pain, unspecified Condition: Good Instructions: ED Chest Pain Atypical Unkn Cause Follow-Up: ESCOBAR CASE PA [Primary Care Provider] - Within 1 week Discharge Date/Time: 09/29/20 02:58
[2020-09-28 23:36] LABS: BASOPHILS # (AUTO) 0.1 10^3/uL (0.0-0.1); BASOPHILS % (AUTO) 0.7 %; EOSINOPHILS # (AUTO) 0.3 10^3/uL (0.0-0.7); EOSINOPHILS % (AUTO) 3.3 %; HGB - HEMOGLOBIN 11.7 g/dL (12.0-16.0); LYMPHOCYTES # (AUTO) 1.7 10^3/uL (1.5-3.5); LYMPHOCYTES % (AUTO) 22.6 %; MEAN CORPUSCULAR HEMOGLOBIN 28.1 pg (27.0-31.0); MEAN CORPUSCULAR HGB CONC 31.1 g/dL (32.0-36.0); MEAN CORPUSCULAR VOLUME 90.2 fL (81.0-99.0); MEAN PLATELET VOLUME 10.7 fL (7.9-10.8); MONOCYTES # (AUTO) 0.8 10^3/uL (0.0-1.0); NEUTROPHILS # (AUTO) 4.8 10^3/uL (1.5-6.6); NEUTROPHILS % (AUTO) 62.1 %; PLT - PLATELET COUNT 267 10^3/uL (130-450); RED BLOOD COUNT 4.17 10^6/uL (4.20-5.40); RED CELL DISTRIBUTION WIDTH 13.7 % (12.0-15.0); WHITE BLOOD COUNT 7.7 x10^3/uL (4.8-10.8)
[2020-09-28 23:49] LABS: ALBUMIN 3.6 g/dL (3.2-5.5); ALBUMIN/GLOBULIN RATIO 1.1 (1.0-2.2); BILIRUBIN,TOTAL 0.5 mg/dL (0.2-1.0); CALCIUM 8.7 mg/dL (8.5-10.3); CREATININE 0.9 mg/dL (0.4-1.0); TOTAL PROTEIN 6.8 g/dL (6.7-8.2)
[2020-09-29] MEDS ORDERED: IOVERSOL 320 100 ML VIAL IVP ONE ×2 (01:14→01:47)
[2020-09-29 02:05] VITALS: BP 150/80
--- NOTE | 2020-09-29 08:45 | CT Report ---
PROCEDURE: ANGIO CHEST W/WO INDICATIONS: pleuritic chest pain CONTRAST: IV CONTRAST: Optiray 320 ml: 100 PO CONTRAST: *NO PO CONTRAST TECHNIQUE: After the administration of intravenous contrast, 2 mm thick sections acquired from the pulmonary api janessa to the posterior costophrenic angles. 3-dimensional maximum intensity projection (MIP) coronal a nd sagittal reformats were then acquired through the thorax. For radiation dose reduction, the follow ing was used: automated exposure control, adjustment of mA and/or kV according to patient size. COMPARISON: CT chest dated 08/19/2016 FINDINGS: Image quality: Excellent. Pulmonary arteries: Pulmonary arteries are normal in size, and demonstrate no intraluminal filling d efects to suggest central pulmonary embolism. Lungs and pleura: No acute consolidation. Scattered scarring/atelectasis, with areas of small nodula rity in the right lung are unchanged since 2016 in keeping with chronic granulomatous sequela. No pl eural effusions or pneumothorax. Central and peripheral airways are patent. Mediastinum: Heart size is normal, without pericardial effusion. No mediastinal or hilar adenopathy . Thoracic aorta is normal in caliber and enhancement. Esophagus is normal in caliber, without hiat al hernia. Scattered vascular calcifications are present in the aorta. Bones and chest wall: No suspicious bony lesions. Ribs and thoracic spine appear intact throughout. The thyroid is normal. No axillary or supraclavicular adenopathy. Abdomen: Visualized upper abdominal solid organs appear normal in the early arterial phase of enhanc ement. IMPRESSION: No evidence of pulmonary embolism. No aortic dissection. Scattered subsegmental scarring/atelectasis. No acute consolidation. Findings are concordant with the preliminary study interpretation provided at the time of the study. Reviewed by: Kyle Milligan MD on 09/29/2020 8:44 AM PST Approved by: Kyle Milligan MD on 09/29/2020 8:44 AM PST Station ID: [id number]
--- NOTE | 2020-09-29 09:59 | XRAY Report ---
PROCEDURE: Chest 1 View X-Ray INDICATIONS: chest pain TECHNIQUE: One view of the chest was acquired. COMPARISON: CT pulmonary angiogram 09/29/2020. CXR 09/26/2019. FINDINGS: Surgical changes and devices: Right axillary clips. Lungs and pleura: No pleural effusions or pneumothorax. Lungs appear clear. Prominent lung volumes. Mediastinum: Mediastinal contours appear normal. Heart size is at the upper limits of normal. Bones and chest wall: No suspicious bony lesions. Overlying soft tissues appear unremarkable. IMPRESSION: No acute cardiopulmonary abnormality. This report is concordant with the overnight preliminary interpretation. Reviewed by: Brett Jalloh MD on 09/29/2020 8:57 AM [facility] Approved by: Brett Jalloh MD on 09/29/2020 8:57 AM [facility] Station ID: [id number]
== END 2020-09-29 02:58 | disposition home or self-care (01) ==
LOC: EDUNIT# → ED 22:52
DX: R07.89 Other chest pain (principal); I49.1 Atrial premature depolarization
CPT/HCPCS: 36415; 71045; 71275; 80053; 83690; 83880; 84484; 85025; 93005; 99284; Q9967

== ENCOUNTER 2020-11-19 21:31 | Emergency (ER) | payer MEDICARE, OTHER ==
--- NOTE | 2020-11-19 22:06 | ED Physician Documentation ---
History of Present Illness - Stated complaint Stated Complaint: LT LEG PX - Chief complaint Chief Complaint: Ext Problem - History obtained from History obtained from: Patient - Additonal information Additional information: Patient comes emergency department chief complaint of left hip pain that started a couple of days ago. She states that she did not have any trauma, but was cleaning out a low cupboard in her kitchen and wonders if that triggered the pain. She states that she cleaned covered a couple days ago and did not have any pain immediately, but woke up the next day with pain in her left groin area. She states that since be over the inguinal area and shoots down. She is able to walk, but it causes the pain to be worse. Patient denies numbness or tingling. No back pain. No falls or other trauma. She states that her doctor told her to try ibuprofen instead of Tylenol, which she states is helped a little. However, the patient states she had an especially bad episode tonight and decided to come in. No other complaints at this time. No history of problems with this hip. Review of Systems Ten Systems: 10 systems reviewed and negative Constitutional: reports: Reviewed and negative Eyes: reports: Reviewed and negative Ears: reports: Reviewed and negative Nose: reports: Reviewed and negative Throat: reports: Reviewed and negative Cardiac: reports: Reviewed and negative Respiratory: reports: Reviewed and negative GI: reports: Reviewed and negative : reports: Reviewed and negative Skin: reports: Reviewed and negative Musculoskeletal: reports: Extremity pain, Pain with weight bearing. 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 HEENT: Other - Present Medications Home Medications: Ambulatory Orders Medication Instructions Recorded Confirmed Albuterol Sulfate [Proair Hfa 1 - 2 puffs INH Q4H PRN 08/19/16 09/28/20 Inhaler] Fluticasone/Salmeterol [Advair 1 each IH DAILY PRN 11/19/20 11/19/20 100-50 Diskus] HYDROcod/ACETAM 5/325 [[place] 5/325] 1 - 2 ea PO Q6H PRN #10 tablet 02/01/21 - Allergies Allergies/Adverse Reactions: Allergies Allergy/AdvReac Type Severity Reaction Status Date / Time Penicillins Allergy Edema Verified 11/19/20 21:35 - Social History Does the pt smoke?: No Smoking Status: Never smoker Does the pt drink ETOH?: No Does the pt have substance abuse?: No - Immunizations Immunizations are current?: No Immunizations: TDAP >10years/unknown PD ED PE NORMAL - Vitals Vital signs reviewed: Yes - General General: Alert and oriented X 3, No acute distress - HEENT HEENT: Atraumatic, PERRL, EOMI, Moist mucous membranes - Neck Neck: Supple, no meningeal sign - Cardiac Cardiac: RRR, No murmur - Respiratory Respiratory: No respiratory distress, Clear bilaterally - Abdomen Abdomen: Soft, Non tender, Non distended - Back Back: No CVA TTP, No spinal TTP - Derm Derm: Normal color, Warm and dry, No rash - Extremities Extremities: No deformity, No tenderness to palpate, No edema, No calf tenderness / cord - Neuro Neuro: Alert and oriented X 3, 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 This was found to be negative. The patient initially declined analgesia in the emergency department but then did decide she would like a dose of oral analgesia. She was given a tablet of Vicodin, as well as a prepack for home use. Patient is encouraged to use ibuprofen primarily, with hydrocodone for breakthrough pain. She will follow-up with her primary care physician. We have discussed the usual indications for return. Departure - Departure Disposition: Home, Self Care Clinical Impression: Left groin pain Condition: Stable Instructions: Exercise Lower Body Hip Flexor Prescriptions: HYDROcod/ACETAM 5/325 [[place] 5/325] 1 - 2 ea PO Q6H PRN #10 tablet PRN Reason: Pain Comments: Your x-ray series looks good. There is no evidence of any abnormalities of the hip joint. Your pain seems to be more related to the soft tissues of the groin area where the hip bends. This could be caused by straining your low back during the work you are doing in your house couple of days ago, or you could have directly strain the area. Most often, these sorts of injuries blow over on their own, given time. You may continue to take ibuprofen as needed. You may also and simultaneously take the pain medication provided. If 1 pill is too much, you may cut the pill in half. You may also continue to use ice and heat. Please follow-up with your primary care physician if you are not feeling better by the end of the week. Discharge Date/Time: 11/19/20 22:55
[2020-11-19] MEDS ORDERED: HYDROcod/ACET 5/325 Prepack 4 PO STA (22:33)
[2020-11-19 22:48] VITALS: BP 166/101
[2020-11-19] MEDS ORDERED: HYDROcod/ACETAM 5/325 MG TABLET PO STA (22:49)
--- NOTE | 2020-11-20 08:16 | XRAY Report ---
PROCEDURE: Hip w/Pelvis 2-3V LT INDICATIONS: pain TECHNIQUE: AP pelvis with lateral view(s) of the left hip(s). COMPARISON: None. FINDINGS: Bones: No fractures or dislocations. Pelvic ring appears intact. No suspicious bony lesions. Mild periarticular osteophyte formation at the bilateral hip joints. Soft tissues: The visualized bowel gas pattern is normal. No suspicious soft tissue calcifications. IMPRESSION: No acute fracture. No osseous lesion. If symptoms and/or clinical suspicion for patholog y continue, further assessment with repeat plain films, or advanced imaging (e.g., CT, MRI, or bone s can) is recommended for further assessment. Concordant with preliminary interpretation. Reviewed by: Eber Rothman MD on 11/20/2020 8:15 AM PST Approved by: Eber Rothman MD on 11/20/2020 8:15 AM PST Station ID: [id number]
== END 2020-11-19 22:55 | disposition home or self-care (01) ==
LOC: ED 21:31
DX: M25.552 Pain in left hip (principal); R10.32 Left lower quadrant pain
CPT/HCPCS: 73502; 99283; 99284; A9270

== ENCOUNTER 2020-11-20 22:39 | Outpatient (CLI) | payer MEDICARE, OTHER | END 2020-11-20 22:40 | disposition critical access hospital (66) | LOC: EMS 22:39 | PROVIDERS: ATTEND Surgery | DX: R50.9 Fever, unspecified (principal); R53.1 Weakness; R40.0 Somnolence | CPT/HCPCS: A0425; A0427 ==

== ENCOUNTER 2020-11-20 23:18 | Inpatient (IN) | payer MEDICARE, OTHER ==
--- NOTE | 2020-11-20 23:42 | ED Physician Documentation ---
PD HPI FEVER - Stated complaint Stated Complaint: SICK - Chief complaint Chief Complaint: General - History obtained from History obtained from: EMS, Other (patient cannot provide useful/reliable HPI/ROS information due to AMS/disorientation. symptom information below and in ROS is per patient, but uncertain as to reliability given her disorientation) - History of Present Illness Timing - onset: Today Pain level max: 0 Pain level now: 0 Associated symptoms: Other (no c/o, denies specific symptoms when asked (such as pain, dyspnea, nausea/vomiting), but she is very confused and thus unreliable historian) Recently seen: Emergency Dept - Additional information Additional information: BIBA for fever. Patient has no c/o although EMS says patient was reporting generalized weakness when they assessed her on scene. Fever at home was reportedly 103.5. Patient was T+R yesterday from this ED for left hip pain; ED MD note from that visit does not indicate any memory/orientation issues (in fact, the note suggests that patient was able to provide detailed, articulate HPI). When I ask her if she remembers being here yesterday, she says yes but seems very uncertain; when I ask her why she was here yesterday, she cannot recall, eventually says "my daughter was worried" (but cannot tell me what her daughter was worried about). Review of Systems Unable to obtain: Confused PD PAST MEDICAL HISTORY - Past Medical History Cardiovascular: None Respiratory: Asthma HEENT: None, Other Derm: Other - Past Surgical History Past Surgical History: Yes General: Cholecystectomy /SLEEVE BASTER: Hysterectomy HEENT: Other - Present Medications Home Medications: Ambulatory Orders Medication Instructions Recorded Confirmed Albuterol Sulfate [Proair Hfa 1 - 2 puffs INH Q4H PRN 08/19/16 11/20/20 Inhaler] Fluticasone/Salmeterol [Advair 1 each IH DAILY PRN 11/19/20 11/20/20 100-50 Diskus] HYDROcod/ACETAM 5/325 [[place] 5/325] 1 - 2 ea PO Q6H PRN #10 tablet 11/19/20 11/20/20 - Allergies Allergies/Adverse Reactions: Allergies Allergy/AdvReac Type Severity Reaction Status Date / Time Penicillins Allergy Edema Verified 11/20/20 23:30 - Social History Does the pt smoke?: No Smoking Status: Never smoker Does the pt drink ETOH?: No Does the pt have substance abuse?: No - Immunizations Immunizations are current?: No Immunizations: TDAP >10years/unknown PD ED PE NORMAL - Vitals Vital signs reviewed: Yes - General General: No acute distress, Well developed/nourished, Other (awake, alert, good eye contact, follows commands. 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, No motor deficit, No sensory deficit, Normal speech, Other (knows neither location nor month nor year (she cannot even offer guesses)) Eye Opening: Spontaneous Motor: Obeys Commands Verbal: Confused GCS Score: 14 Results - Vitals Vitals: Vital Signs - 24 hr 11/20/20 11/20/20 11/21/20 23:26 23:31 00:40 Temperature 39 C H 39 C H 38.5 C H Heart Rate 99 99 Respiratory 18 18 Rate Blood Pressure 167/81 H 167/81 H O2 Saturation 93 93 11/21/20 01:04 Temperature Heart Rate 84 Respiratory 25 H Rate Blood Pressure 151/68 H O2 Saturation 93 Oxygen O2 Source Room air - Labs Labs: Laboratory Tests 11/20/20 11/20/20 11/20/20 00:00 00:00 00:00 WBC 7.6 RBC 4.67 Hgb 13.1 Hct 41.9 MCV 89.7 MCH 28.1 MCHC 31.3 L RDW 14.0 Plt Count 204 MPV 10.4 Neut # (Auto) 6.2 Lymph # (Auto) 0.7 L Grand # (Auto) 0.5 Eos # (Auto) 0.2 Baso # (Auto) 0.1 Absolute Nucleated RBC 0.00 Nucleated RBC % 0.0 ESR PT 12.6 INR 1.1 APTT 28.3 Sodium 134 L Potassium 3.7 Chloride 99 L Carbon Dioxide 25 Anion Gap 10.0 BUN 16 Creatinine 0.8 Estimated GFR (MDRD) 68 L Glucose 114 H Lactic Acid Calcium 8.5 Total Bilirubin 1.2 H AST 23 ALT 16 Alkaline Phosphatase 53 C-Reactive Protein < 1.0 Total Protein 7.2 Albumin 3.9 Globulin 3.3 Albumin/Globulin Ratio 1.2 Urine Color Urine Clarity Urine pH Ur Specific [place] Urine Protein Urine Glucose (UA) Urine Ketones Urine Occult Blood Urine Nitrite Urine Bilirubin Urine Urobilinogen Ur Leukocyte Esterase Ur Microscopic Review Urine Culture Comments Nasal Adenovirus (PCR) Nasal B. parapertussis DNA (PCR) Nasal Coronavir 229E PCR Nasal Coronavir HKU1 PCR Nasal Coronavir NL63 PCR Nasal Coronavir OC43 PCR Nasal Enterovir/Rhinovir PCR Nasal Influenza B PCR Nasal Influenza A PCR Nasal Parainfluen 1 PCR Nasal Parainfluen 2 PCR Nasal Parainfluen 3 PCR Nasal Parainfluen 4 PCR Nasal RSV (PCR) Nasal B.pertussis DNA PCR Nasal C.pneumoniae (PCR) [place] Human Metapneumo PCR Nasal M.pneumoniae (PCR) Nasal SARS-CoV-2 (PCR) 11/20/20 11/21/20 11/21/20 00:00 00:00 00:00 WBC RBC Hgb Hct MCV MCH MCHC RDW Plt Count MPV Neut # (Auto) Lymph # (Auto) Grand # (Auto) Eos # (Auto) Baso # (Auto) Absolute Nucleated RBC Nucleated RBC % ESR 20 PT INR APTT Sodium Potassium Chloride Carbon Dioxide Anion Gap BUN Creatinine Estimated GFR (MDRD) Glucose Lactic Acid 1.0 Calcium Total Bilirubin AST ALT Alkaline Phosphatase C-Reactive Protein Total Protein Albumin Globulin Albumin/Globulin Ratio Urine Color Urine Clarity Urine pH Ur Specific [place] Urine Protein Urine Glucose (UA) Urine Ketones Urine Occult Blood Urine Nitrite Urine Bilirubin Urine Urobilinogen Ur Leukocyte Esterase Ur Microscopic Review Urine Culture Comments Nasal Adenovirus (PCR) NOT DETECTED Nasal B. parapertussis DNA (PCR) NOT DETECTED Nasal Coronavir 229E PCR NOT DETECTED Nasal Coronavir HKU1 PCR NOT DETECTED Nasal Coronavir NL63 PCR NOT DETECTED Nasal Coronavir OC43 PCR NOT DETECTED Nasal Enterovir/Rhinovir PCR NOT DETECTED Nasal Influenza B PCR NOT DETECTED Nasal Influenza A PCR NOT DETECTED Nasal Parainfluen 1 PCR NOT DETECTED Nasal Parainfluen 2 PCR NOT DETECTED Nasal Parainfluen 3 PCR NOT DETECTED Nasal Parainfluen 4 PCR NOT DETECTED Nasal RSV (PCR) NOT DETECTED Nasal B.pertussis DNA PCR NOT DETECTED Nasal C.pneumoniae (PCR) NOT DETECTED [place] Human Metapneumo PCR NOT DETECTED Nasal M.pneumoniae (PCR) NOT DETECTED Nasal SARS-CoV-2 (PCR) NOT DETECTED 11/21/20 01:03 WBC RBC Hgb Hct MCV MCH MCHC RDW Plt Count MPV Neut # (Auto) Lymph # (Auto) Grand # (Auto) Eos # (Auto) Baso # (Auto) Absolute Nucleated RBC Nucleated RBC % ESR PT INR APTT Sodium Potassium Chloride Carbon Dioxide Anion Gap BUN Creatinine Estimated GFR (MDRD) Glucose Lactic Acid Calcium Total Bilirubin AST ALT Alkaline Phosphatase C-Reactive Protein Total Protein Albumin Globulin Albumin/Globulin Ratio Urine Color YELLOW Urine Clarity CLEAR Urine pH 7.0 Ur Specific [place] 1.020 Urine Protein TRACE Urine Glucose (UA) NEGATIVE Urine Ketones 40 H Urine Occult Blood NEGATIVE Urine Nitrite NEGATIVE Urine Bilirubin NEGATIVE Urine Urobilinogen 0.2 (NORMAL) Ur Leukocyte Esterase NEGATIVE Ur Microscopic Review NOT INDICATED Urine Culture Comments NOT INDICATED Nasal Adenovirus (PCR) Nasal B. parapertussis DNA (PCR) Nasal Coronavir 229E PCR Nasal Coronavir HKU1 PCR Nasal Coronavir NL63 PCR Nasal Coronavir OC43 PCR Nasal Enterovir/Rhinovir PCR Nasal Influenza B PCR Nasal Influenza A PCR Nasal Parainfluen 1 PCR Nasal Parainfluen 2 PCR Nasal Parainfluen 3 PCR Nasal Parainfluen 4 PCR Nasal RSV (PCR) Nasal B.pertussis DNA PCR Nasal C.pneumoniae (PCR) [place] Human Metapneumo PCR Nasal M.pneumoniae (PCR) Nasal SARS-CoV-2 (PCR) - Rads (name of study) chest xray Radiology: Prelim report reviewed, See rad report PD MEDICAL DECISION MAKING - ED course Complexity details: reviewed old records, reviewed results, re-evaluated patient, considered differential, d/w patient ED course: no apparent source for fever on ED workup. she meets sepsis criteria (temp greater than 38, heart rate greater than 90, and severe sepsis criteria of AMS). chart reflects penicillin allergy (she is too confused to provide reliable h/o what her reaction is), and thus given antibiotics according to sepsis protocol for penicillin-allergic patient. d/w Dr. Nguyen, accepts admit to hospitalist service Departure - Departure Disposition: ED Place in Observation Clinical Impression: Sepsis Qualifiers: Sepsis type: sepsis due to unspecified organism Sepsis acute organ dysfunction status: unspecified Qualified Code(s): A41.9 - Sepsis, unspecified organism Condition: Good Discharge Date/Time: 11/21/20 01:50
[2020-11-20] MEDS ORDERED: ACETAMINOPHEN 325 MG TABLET PO STA (23:51)
[2020-11-21] MEDS ORDERED: metroNIDAZOLE 500 MG/100 ML 500 MG/100 ML BAG IV STA (00:04)
[2020-11-21] MEDS ORDERED: AZTREONAM 2 GM in SODIUM CHLORIDE 0.9% MINIBAG 100 ML IV STA (00:04)
[2020-11-21] MEDS ORDERED: VANCOMYCIN INJ 2 GM in SODIUM CHLORIDE 0.9% 500 ML IV STA (00:04)
[2020-11-21 00:18] LABS: BASOPHILS # (AUTO) 0.1 10^3/uL (0.0-0.1); BASOPHILS % (AUTO) 0.7 %; EOSINOPHILS # (AUTO) 0.2 10^3/uL (0.0-0.7); HGB - HEMOGLOBIN 13.1 g/dL (12.0-16.0); LYMPHOCYTES # (AUTO) 0.7 10^3/uL (1.5-3.5); MEAN CORPUSCULAR HEMOGLOBIN 28.1 pg (27.0-31.0); MEAN CORPUSCULAR HGB CONC 31.3 g/dL (32.0-36.0); MEAN CORPUSCULAR VOLUME 89.7 fL (81.0-99.0); MEAN PLATELET VOLUME 10.4 fL (7.9-10.8); MONOCYTES # (AUTO) 0.5 10^3/uL (0.0-1.0); MONOCYTES % (AUTO) 6.3 %; NEUTROPHILS # (AUTO) 6.2 10^3/uL (1.5-6.6); NEUTROPHILS % (AUTO) 81.7 %; PLT - PLATELET COUNT 204 10^3/uL (130-450); RED BLOOD COUNT 4.67 10^6/uL (4.20-5.40); WHITE BLOOD COUNT 7.6 x10^3/uL (4.8-10.8)
[2020-11-21 00:22] LABS: INR 1.1 (0.8-1.2); PT - PROTHROMBIN TIME 12.6 secs (9.9-12.6)
[2020-11-21 00:30] LABS: PARTIAL THROMBOPLASTIN TIME 28.3 secs (24.9-33.3)
[2020-11-21 00:34] LABS: ALBUMIN 3.9 g/dL (3.2-5.5); ALBUMIN/GLOBULIN RATIO 1.2 (1.0-2.2); ALKALINE PHOSPHATASE 53 IU/L (42-121); ALT ALANINE AMINOTRANSFERASE 16 IU/L (10-60); AST ASPARTATE AMINOTRANSFERASE 23 IU/L (10-42); BILIRUBIN,TOTAL 1.2 mg/dL (0.2-1.0); BUN - BLOOD UREA NITROGEN 16 mg/dL (6-20); CALCIUM 8.5 mg/dL (8.5-10.3); CARBON DIOXIDE - CO2 25 mmol/L (21-32); CHLORIDE 99 mmol/L (101-111); CREATININE 0.8 mg/dL (0.4-1.0); CRP - C-REACTIVE PROTEIN < 1.0 mg/dL (0-1.0); GLUCOSE 114 mg/dL (70-100); TOTAL PROTEIN 7.2 g/dL (6.7-8.2)
[2020-11-21] MEDS ORDERED: VANCOMYCIN 1 GM VIAL ONE (00:47)
[2020-11-21 01:10] LABS: BILIRUBIN,URINE NEGATIVE (NEGATIVE); GLUCOSE, URINE (UA) NEGATIVE (NEGATIVE); KETONES,URINE (UA) 40 mg/dL (NEGATIVE); LEUKOCYTE ESTERASE, URINE NEGATIVE (NEGATIVE); NITRITE,URINE NEGATIVE (NEGATIVE); OCCULT BLOOD,URINE NEGATIVE (NEGATIVE); PROTEIN,URINE TRACE mg/dL (NEGATIVE); UROBILINOGEN,URINE 0.2 (NORMAL) E.U./dL (NORMAL)
[2020-11-21 01:20] LABS: CLARITY,URINE CLEAR (CLEAR)
[2020-11-21 01:21] LABS: C. PNEUMONIAE- RESP PCR PANEL NOT DETECTED
[2020-11-21] MEDS ORDERED: ONDANSETRON 4 MG/2 ML VIAL IVP PRN (01:22)
[2020-11-21] MEDS ORDERED: SODIUM CHLORIDE FLUSH 0.9% 10 ML SYRINGE IVP PRN (01:22)
[2020-11-21] MEDS ORDERED: ONDANSETRON ODT 4 MG TABLET TL PRN (01:22)
--- NOTE | 2020-11-21 01:30 | HISTORY & PHYSICAL EXAMINATION ---
Chief Complaint - Chief Complaint Chief Complaint: Confusion History of Present Illness - Admitted From Admitted From:: Home - History Obtained From Records Reviewed: Yes History obtained from: Patient, Daughter, ER Physician, EMR Exam Limitations: Patient is altered and is a poor historian. - History of Present Illness HPI Comment/Other: This is a 89-year-old female with a history of reactive airway disease who presents today from home after her daughter noticed that she has had progressive confusion and concerns for a fever. Most of the history is obtained from the patient's daughter and the ER provider as the patient is altered and is unable to provide a meaningful history. The patient was seen yesterday in the emergency department for left upper thigh pain which was felt to be a muscle strain. She was prescribed Vicodin which the patient reportedly took this morning at around 5 AM per the daughter and again at around 11 AM. The daughter then noticed the patient became increasingly confused had some difficulty with speech at times. She thought this was due to the Vicodin and so she just watched her mother over the next few hours. She states that her speech returned to normal but the patient continued to be confused which is unusual for her. She then felt like her mom was warm and was concerned for a fever. She did not have a thermometer at home so she did not measure her temperature. Given she was still confused and the new concern for fever, she called EMS. The patient's only complaint at this time is a mild headache. Denies any chest pain, dyspnea. Reports no muscle or joint pain. Denies abdominal pain, nausea, vomiting. The daughter does believe that her mother may have had Covid at the end of August as she had cold-like symptoms and intermittent chest pain. She was never tested. She states her mom does go out on a regular basis but to her knowledge, has had no recent sick contacts. She does note that her mother was complaining of some nasal congestion the past few days. In the emergency department, she was found to be febrile with a temperature of 39 C. Heart rate was in the 90s. Blood pressures in the 160s over 80s. She was not tachypneic and saturating 93% on room air. Labs were unremarkable. She had a normal white count as well as ESR and CRP. Lactic acid was also normal. Her urinalysis was unremarkable. She underwent a 2 view chest x-ray which showed no acute abnormalities. Respiratory PCR panel was unremarkable. Given her confusion and fever, medicine was consulted for admission. She did receive vancomycin, aztreonam, Flagyl IV empirically given the initial concern for sepsis. I did discuss goals of care with the patient's daughter as the patient is unable to make this medical decision for herself. The patient's daughter, Coby, believes the patient would want to be a DNR History - Past Medical History Cardiovascular: reports: None Respiratory: reports: Asthma HEENT: reports: None, Other Derm: reports: Other MRSA Hx?: No - Past Surgical History General: reports: Cholecystectomy /LOAN TELLER: reports: Hysterectomy HEENT: reports: Other - Family & Social History Family History Comment/Other: Unable to obtain due to her altered mental status. Living arrangement: At home Living Situation: Alone Social History Notes: Patient lives alone and is independent. She denies any smoking or alcohol use. Meds/Allgy - Home Medications Home Medications: Ambulatory Orders Medication Instructions Recorded Confirmed Albuterol Sulfate [Proair Hfa 1 - 2 puffs INH Q4H PRN 08/19/16 11/20/20 Inhaler] Fluticasone/Salmeterol [Advair 1 each IH DAILY PRN 11/19/20 11/20/20 100-50 Diskus] HYDROcod/ACETAM 5/325 [[place] 5/325] 1 - 2 ea PO Q6H PRN #10 tablet 11/19/20 11/20/20 - Allergies Allergies/Adverse Reactions: Allergies Allergy/AdvReac Type Severity Reaction Status Date / Time Penicillins Allergy Edema Verified 11/20/20 23:30 Review of Systems - Constitutional Constitutional: reports: Fever. denies: Fatigue, Malaise - Eyes Eyes: denies: Blurred vision - Ears, Nose & Throat Ears, Nose & Throat: reports: Nasal congestion - Cardiovascular Cariovascular: denies: Chest pain, Edema, Exertional dyspnea, Decr. exercise tolerance - Respiratory Respiratory: denies: Cough, SOB at rest, SOB with exertion - Gastrointestinal Gastrointestinal: denies: Abdominal pain, Diarrhea, Nausea, Vomiting - Genitourinary Genitourinary: denies: Dysuria, Frequency, Urgency, Hematuria, Flank pain - Musculoskeletal Musculoskeletal: denies: Muscle pain, Back pain, Stiffness, Muscle weakness, Joint pain - Neurological Neurological: reports: Headache. denies: General weakness, Focal weakness, Dizziness, Numbness - All Other Systems All Other Systems: reports: Other (Review of systems is limited given the patient is a poor historian.) Prior Level of Functionality: She is independent with her ADLs. Exam - Vital Signs Reviewed Vital Signs: Yes Vital Signs: Vital Signs x48h Temp Pulse Resp BP Pulse Ox 11/21/20 01:04 84 25 H 151/68 H 93 11/21/20 00:40 38.5 C H 11/20/20 23:31 39 C H 99 18 167/81 H 93 11/20/20 23:26 39 C H 99 18 167/81 H 93 - Physical Exam General Appearance: positive: No acute distress, Alert, Mild distress Eyes Bilateral: positive: Normal inspection, EOMI, Conjunctivae nml ENT: positive: ENT inspection nml Neck: positive: Nml inspection. negative: Stiff neck, Brudzinski's sign Respiratory: positive: No respiratory distress, Wheezes (Faint expiratory wheezes.). negative: Rales Cardiovascular: positive: Regular rate & rhythm, No murmur. negative: Tach ycardia, Systolic murmur Abdomen: positive: Non-tender, No distention. negative: Tenderness, Guarding, Rebound Back: positive: Nml inspection, Other (No cervical spine, thoracic spine, lumbar spine tenderness). negative: CVA tenderness (R), CVA tenderness (L) Skin: positive: Warm, Dry Extremities: positive: Full ROM, No pedal edema, Other. negative: Joint swelling Neurologic/Psychiatric: positive: Motor nml, Sensation nml, Disoriented to place, Disoriented to time, Other (She has no focal deficits and has 5 out of 5 strength in all 4 extremities. She is disoriented to location and time.). negative: Disoriented to person, Slurred/abnml speech Sepsis Event Note (H) - Evaluation Possible source of Sepsis: positive: Unknown - Sepsis Criteria Sepsis Criteria: Recorded Temperature greater than 38.3C or Less than 36C, PULP DRIER: altered consciousness (unrelated to primary neuro pathology) Conclusion/Plan - Problem List (1) Fever Conclusion/Plan: Etiology of fever is not clear at this time. There is no obvious source of infection. Her inflammatory markers are within normal limits. She has no white count. Her urinalysis does not suggest infection. Her abdominal and musculosk eletal exam do not suggest an obvious source of infection. She is confused and disoriented which may be related to fever or the use of narcotics. She does not have any meningeal signs so low suspicion for bacterial meningitis. She could potentially have a viral encephalitis as a source of her fever. At this time, we will hold off on continuing antibiotics given the lack of obvious source of i nfection. We will start her empirically on acyclovir IV. We will likely obtain a lumbar puncture in the morning if there is no clinical improvement. Follow-up blood cultures. (2) Altered mental status Conclusion/Plan: The etiology of this is not clear at the moment. This may be related to the use of narcotics but given her fever, concern is for infection as well. I would have expected her to improve by now if this was related to narcotics. She has n o focal deficits on exam but we will obtain a CT of the head for further evaluations. Will not check ammonia given her normal LFTs. Although her respiratory PCR panel is unremarkable, she could still potentially have a viral encephalitis given the associated fever. If she remains febrile without improvement in her mentation, will obtain a lumbar puncture in the morning. In the interim, we will start her empirically on acyclovir IV. We will not place her on antibiotics as low suspicion for bacterial meningitis at this point in time given the lack of physical exam findings. (3) History of reactive airway disease Conclusion/Plan: Continue with albuterol as needed. - Lab Results Lab results reviewed: Yes Fish Bones: 11/20/20 00:00 11/20/20 00:00 - Diagnostic Imaging Results Diagnostic Imaging Results: positive: Final report reviewed Core Measures - Anticipated LOS I expect patient to be DC'd or transferred within 96 hours.: Yes - Issues Hospital Issues and Management Plan: 89-year-old female presents with confusion after initiation of opiates found to have a fever as well. No obvious source of infection at this time. We will admit for further work-up. Start her on acyclovir IV empirically for possible encephalitis and will likely obtain a lumbar puncture. Obtain CT of the head. - DVT/VTE - Prophylaxis VTE/DVT Device ordered at admit?: Yes VTE/DVT Prophylaxis med ordered at admit?: No
[2020-11-21] MEDS: LACTATED RINGERS 1,000 ML IV SCH ×2 (02:48→12:20)
[2020-11-21] MEDS: ACYCLOVIR IV SCH ×2 (03:04→10:28)
[2020-11-21] MEDS: SODIUM CHLORIDE 0.9% IV SCH ×2 (03:04→10:28)
[2020-11-21] MEDS: SODIUM CHLORIDE FLUSH 0.9% 10 ML SYRINGE IVP SCH ×3 (03:10→23:42)
[2020-11-21 05:08] LABS: BASOPHILS % (AUTO) 0.6 %; EOSINOPHILS % (AUTO) 0.1 %; HGB - HEMOGLOBIN 12.9 g/dL (12.0-16.0); LYMPHOCYTES # (AUTO) 0.9 10^3/uL (1.5-3.5); LYMPHOCYTES % (AUTO) 12.6 %; MEAN CORPUSCULAR HEMOGLOBIN 27.7 pg (27.0-31.0); MEAN CORPUSCULAR HGB CONC 30.8 g/dL (32.0-36.0); MEAN CORPUSCULAR VOLUME 89.9 fL (81.0-99.0); MEAN PLATELET VOLUME 11.1 fL (7.9-10.8); MONOCYTES # (AUTO) 0.8 10^3/uL (0.0-1.0); NEUTROPHILS # (AUTO) 5.1 10^3/uL (1.5-6.6); NEUTROPHILS % (AUTO) 75.4 %; PLT - PLATELET COUNT 206 10^3/uL (130-450); RED BLOOD COUNT 4.66 10^6/uL (4.20-5.40); WHITE BLOOD COUNT 6.8 x10^3/uL (4.8-10.8)
[2020-11-21 05:17] LABS: CALCIUM 8.6 mg/dL (8.5-10.3); CREATININE 0.7 mg/dL (0.4-1.0)
--- NOTE | 2020-11-21 07:29 | CT Report ---
PROCEDURE: HEAD WO INDICATIONS: Altered mental status. Fever. TECHNIQUE: Noncontrast 4.5 mm thick angled axial sections acquired from the foramen magnum to the vertex. For r adiation dose reduction, the following was used: automated exposure control, adjustment of mA and/or kV according to patient size. COMPARISON: CT . MRI 9 cm FINDINGS: Image quality: Excellent. CSF spaces: Basal cisterns are patent. No extra-axial fluid collections. The ventricles are symmet nigel in size and shape. Brain: No intracranial bleeds or masses. There is cerebral volume loss for age, with resultant vent ricular and sulcal prominence. There are periventricular and deep white matter chronic small vessel ischemic changes. There is intracranial internal carotid artery atherosclerosis. Skull and face: Calvarium and visualized facial bones appear intact, without suspicious lesions. Sinuses: Visualized sinuses and mastoids are clear. IMPRESSION: No acute intracranial disease process. Reviewed by: Kathy Lopez MD, PhD on 11/21/2020 7:27 AM PST Approved by: Kathy Lopez MD, PhD on 11/21/2020 7:27 AM PST Station ID: [id number]
--- NOTE | 2020-11-21 08:29 | XRAY Report ---
PROCEDURE: Chest 2 View X-Ray INDICATIONS: fever TECHNIQUE: 2 view(s) of the chest. COMPARISON: 09/28/2020 chest x-ray FINDINGS: Surgical changes and devices: Right axillary and chest wall surgical clips. Lungs and pleura: No pleural effusions or pneumothorax. Lungs are clear. Mediastinum: Mediastinal contours are normal. Heart size is normal. Bones and chest wall: No suspicious bony abnormalities. Soft tissues appear unremarkable. IMPRESSION: No acute process. Reviewed by: Eber Rothman MD on 11/21/2020 8:27 AM [facility] Approved by: Eber Rothman MD on 11/21/2020 8:27 AM [facility] Station ID: [id number]
[2020-11-21] MEDS: ACETAMINOPHEN 325 MG TABLET PO PRN ×3 (09:13→20:16)
--- NOTE | 2020-11-21 12:07 | ANESTHESIA PROCEDURE NOTE ---
Diagnosis: AMS with fever of unknown origin Consent for Procedure(s) Verified and Reviewed: Yes Height and Weight: Height 5 ft 7 in Weight (kg) 72.5 kg Body Mass Index 25.0 Vital Signs: Temp Pulse Resp BP Pulse Ox 37.3 C 101 H 20 173/81 H 92 11/21/20 10:20 11/21/20 09:00 11/21/20 09:00 11/21/20 09:00 11/21/20 09:00 Allergies Penicillins Allergy (Verified 11/20/20 23:30) Edema Requesting Provider: Dr. Ward Location: 2201 ASA classification: 2-Mild systemic disease Is this case an emergency?: No Anes. Monitoring and Equipment: Sterile prep and drape Anes. Procedure Start Time: 11:45 Anes. Procedure Stop Time: 11:55 Procedure Notes: LP performed with sterile technique at L4-L5. Sitting position. Pt tolerated well. NAC
[2020-11-21 12:24] LABS: CLARITY,CSF CLEAR (CLEAR); COLOR,CSF COLORLESS (COLORLESS); CSF TUBE # CSF TUBE# 3; CSF XANTHOCHROMIA ABSENT (ABSENT); RED BLOOD CELL,CSF 350 /mm^3 (0-1); WHITE BLOOD CELL,CSF 3 /mm^3 (0-5)
[2020-11-21 12:33] LABS: CSF - GLUCOSE 61 mg/dL (45-70)
--- NOTE | 2020-11-21 16:50 | PHARMACY PROGRESS NOTE ---
- Best Possible Medication History Admit Date and Time: 11/21/20 0122 Processed by: Pharmacy Medication History completed: Yes Patient Interview: Completed Secondary Source(s): Physician records, Pharmacy records, Insurance records (PATIENT INTERVIEWED BY SALESFORCE TRAINER. PATIENT ABLE TO CONFIRM HOME MEDICATIONS ) As the person ultimately responsible for medication therapy, providers are able to order a medication from an existing home medication list in [facility] via the "Reconcile Routine" prior to Confirmation of that medication by technical support director. Such practice is discouraged except when the physician, in their clinical judgment, deems that a medical need exists for a medication without regard to previous use.
[2020-11-21] MEDS ORDERED: ACYCLOVIR INJ 700 MG in SODIUM CHLORIDE 0.9% 250 ML IV SCH (18:00)
[2020-11-22] MEDS: ACETAMINOPHEN 325 MG TABLET PO PRN ×3 (00:44→15:53)
[2020-11-22 05:22] LABS: BASOPHILS % (AUTO) 0.5 %; EOSINOPHILS % (AUTO) 0.5 %; HGB - HEMOGLOBIN 12.6 g/dL (12.0-16.0); LYMPHOCYTES # (AUTO) 0.9 10^3/uL (1.5-3.5); LYMPHOCYTES % (AUTO) 13.8 %; MEAN CORPUSCULAR HEMOGLOBIN 28.3 pg (27.0-31.0); MEAN CORPUSCULAR HGB CONC 31.9 g/dL (32.0-36.0); MEAN CORPUSCULAR VOLUME 88.6 fL (81.0-99.0); MEAN PLATELET VOLUME 10.1 fL (7.9-10.8); MONOCYTES # (AUTO) 0.8 10^3/uL (0.0-1.0); MONOCYTES % (AUTO) 12.6 %; NEUTROPHILS # (AUTO) 4.7 10^3/uL (1.5-6.6); NEUTROPHILS % (AUTO) 72.3 %; PLT - PLATELET COUNT 178 10^3/uL (130-450); RED BLOOD COUNT 4.46 10^6/uL (4.20-5.40); RED CELL DISTRIBUTION WIDTH 13.6 % (12.0-15.0); WHITE BLOOD COUNT 6.5 x10^3/uL (4.8-10.8)
[2020-11-22 05:40] LABS: CALCIUM 8.6 mg/dL (8.5-10.3); CREATININE 0.6 mg/dL (0.4-1.0)
[2020-11-22] MEDS: SODIUM CHLORIDE FLUSH 0.9% 10 ML SYRINGE IVP SCH ×2 (08:47→17:01)
--- NOTE | 2020-11-22 09:32 | PROVIDER PROGRESS NOTE ---
Subjective - Prog Note Date Prog Note Date: 11/22/20 Prog Note Time: 10:24 - Subjective Subjective: she is more confused. yesterday Able to have complete sentences. She may not know the answers to my questions but she was able to smile, interact, and speak to me normally. Today sentences or chopped, she trails off in mid sentence, or cannot find the words. She cannot tell me her name, she cannot tell me her birthdate. Continues to have fever requiring Tylenol. Acyclovir was stopped last night after the CSF showed negative virus antigen Current Medications - Current Medications Current Medications: Active Medications Acetaminophen (Acetaminophen 325 Mg Tablet) 650 mg PO Q4HR PRN PRN Reason: Pain 1 to 4 Last Admin: 11/22/20 05:36 Dose: 650 mg Documented by: Ondansetron HCl (Ondansetron 4 Mg/2 Ml Vial) 4 mg IVP Q6HR PRN PRN Reason: Nausea / Vomiting Ondansetron HCl (Ondansetron Odt 4 Mg Tablet) 4 mg TL Q6HR PRN PRN Reason: Nausea / Vomiting Sodium Chloride (Sodium Chloride Flush 0.9% 10 Ml Syringe) 10 ml IVP PRN PRN PRN Reason: NEEDED PER PROVIDER ORDERS Last Admin: 11/21/20 23:42 Dose: 10 ml Documented by: Sodium Chloride (Sodium Chloride Flush 0.9% 10 Ml Syringe) 10 ml IVP 0100,0900,1700 ALEXX Last Admin: 11/22/20 08:47 Dose: 10 ml Documented by: Albuterol Sulfate [Proair Hfa Inhaler] 1 - 2 puffs INH Q4H PRN 08/19/16 Objective - Vital Signs/Intake & Output Reviewed Vital Signs: Yes Vital Signs: Vital Signs x48h Temp Pulse Resp BP BP Pulse Ox 11/22/20 08:50 37.8 C 110 H 14 141/74 H 91 L 11/22/20 05:35 90 153/93 H 11/22/20 04:57 38.2 C H 88 16 168/85 H 93 Intake & Output: Intake & Output 11/19/20 11/20/20 11/21/20 11/22/20 23:59 23:59 23:59 23:59 Intake Total 4237.333 60 Output Total 1800 1300 Balance 2437.333 -1240 - Objective General Appearance: positive: Alert, Other (Sitting upright in bed, trying to figure out how to use a knife and fork to cut her pancakes and cannot figure out how to do it. Speech is stuttering, halting, no fluidity) Eyes Bilateral: positive: PERRL, EOMI ENT: positive: No signs of dehydration Neck: positive: No JVD. negative: Stiff neck Respiratory: positive: No respiratory distress. negative: Wheezes, Rales, Rhonchi Cardiovascular: positive: Regular rate & rhythm, Systolic murmur. negative: Gallop/S4 Abdomen: positive: Non-tender, No organomegaly, Nml bowel sounds, No distention Skin: positive: Warm, Dry Extremities: positive: Full ROM Neurologic/Psychiatric: positive: CN's nml (2-12), Motor nml (other than weakness requiring assist), Disoriented to person, Disoriented to place, Disoriented to time - Lab Results Fish Bones: 11/22/20 04:48 11/22/20 04:48 Other Labs: Lab Results x24hrs 11/22/20 11/22/20 11/21/20 Range/Units 04:48 04:48 12:03 WBC 6.5 (4.8-10.8) x10^3/uL RBC 4.46 (4.20-5.40) 10^6/uL Hgb 12.6 (12.0-16.0) g/dL Hct 39.5 (37.0-47.0) % MCV 88.6 (81.0-99.0) fL MCH 28.3 (27.0-31.0) pg MCHC 31.9 L (32.0-36.0) g/dL RDW 13.6 (12.0-15.0) % Plt Count 178 (130-450) 10^3/uL MPV 10.1 (7.9-10.8) fL Neut # (Auto) 4.7 (1.5-6.6) 10^3/uL Lymph # (Auto) 0.9 L (1.5-3.5) 10^3/uL [place] # (Auto) 0.8 (0.0-1.0) 10^3/uL Eos # (Auto) 0.0 (0.0-0.7) 10^3/uL Baso # (Auto) 0.0 (0.0-0.1) 10^3/uL Absolute Nucleated RBC 0.00 x10^3/uL Nucleated RBC % 0.0 /100WBC Sodium 134 L (135-145) mmol/L Potassium 3.7 (3.5-5.0) mmol/L Chloride 98 L (101-111) mmol/L Carbon Dioxide 27 (21-32) mmol/L Anion Gap 9.0 (6-13) BUN 9 (6-20) mg/dL Creatinine 0.6 (0.4-1.0) mg/dL Estimated GFR (MDRD) 94 (>89) Glucose 115 H (70-100) mg/dL Calcium 8.6 (8.5-10.3) mg/dL CSF Color COLORLESS (COLORLESS) CSF Clarity CLEAR (CLEAR) Xanthrochromic ABSENT (ABSENT) CSF WBC 3 (0-5) /mm^3 CSF RBC 350 H (0-1) /mm^3 CSF Cell Count Tube # CSF TUBE# 3 CSF Glucose 61 (45-70) mg/dL CSF Total Protein 146 H (15-60) mg/dL ABX Reporting Has patient been on IV antibiotics over the past 48 hours?: No Sepsis Event Note (H) - Evaluation Possible source of Sepsis: positive: Unknown - Sepsis Criteria Sepsis Criteria: Recorded Temperature greater than 38.3C or Less than 36C, [employer]: altered consciousness (unrelated to primary neuro pathology) Assessment/Plan - Problem List (1) Fever Impression: Etiology of fever is not clear at this time. There is no obvious source of infection. On admission, her inflammatory markers are within normal limits. She had no white count. Her urinalysis did not suggest infection. Her abdominal and musculoskeletal exam did not suggest an obvious source of infection. She is confused and disoriented which may be related to fever or the use of narcotics. She did not have any meningeal signs so low suspicion for bacterial meningitis. She could potentially have a viral encephalitis as a source of her fever. She did not clear. Continue to have low-grade fevers, confusion and assess lumbar puncture was done. It was negative. Viral antigen checked and all negative. As such acyclovir stopped. Case discussed with her daughter. This morning she continues to be febrile, and even more confused. No elevated white cell count. No hypoxemia. Plan: Repeat sed rate, blood cultures. Rheumatoid factor, serum protein electrophoresis, CK, LDH ordered. CT chest abdomen pelvis also ordered. Echo ordered. (2) Altered mental status Conclusion/Plan: We continue to be puzzled by her altered mental status and confusion. The init ial thought that it could be due to her narcotic use is no longer being entertained since she has not had narcotics for 2 days. Fever continues. One elevation of bilirubin but no elevation of other liver enzymes. Plan: Still holding off on antibiotics Antivirals discontinued Work-up as noted above in problem #1 (3) History of reactive airway disease Conclusion/Plan: Continue with albuterol as needed.
[2020-11-22] MEDS ORDERED: IOVERSOL 320 100 ML VIAL IVP ONE ×2 (09:43→13:44)
[2020-11-22] MEDS ORDERED: IOPAMIDOL-300 50 ML VIAL ONE (09:44)
[2020-11-22 10:19] LABS: RHEUMATOID FACTOR NEGATIVE (Negative)
--- NOTE | 2020-11-22 12:43 | CT Report ---
PROCEDURE: CHEST W INDICATIONS: fuo CONTRAST: IV CONTRAST: Optiray 320 ml: 100 PO CONTRAST: Isovue 300 ml50 TECHNIQUE: After the administration of intravenous contrast, 5 mm thick sections acquired from the pulmonary api janessa to the posterior costophrenic angles. 7 mm thick coronal MIP reformats were acquired. For radia tion dose reduction, the following was used: automated exposure control, adjustment of mA and/or kV according to patient size. COMPARISON: 09/29/2020 CT angiogram of the chest. FINDINGS: Image quality: Excellent. Lungs and pleura: Subtle centrilobular and tree-in-bud nodular opacities are present in the upper lob es bilaterally, right greater than left. There is also some tree-in-bud nodularity in the superior an d lateral segments of the right lower lobe. No focal consolidation. No pleural effusion or other sign ificant pleural abnormality. Mediastinum: Heart size is normal. No pericardial effusion. Partial enlarged mediastinal or hilar lym ph node by CT size criteria. Normal caliber thoracic aorta and main pulmonary trunk. Aortic atheroscl erosis. Bones and chest wall: No suspicious lytic or blastic osseous lesion. Right breast and axillary surgic al clips. Abdomen: Visualized upper abdominal solid organs appear normal. Upper abdominal bowel loops are nor mal in caliber. IMPRESSION: Subtle tree-in-bud nodularity in the right greater than left upper lobes and in portions of the right lower lobe. These abnormalities are increased when compared with 09/29/2020 examination, presumably are infectious/inflammatory in origin, and could potentially explain fever. Reviewed by: Edy Scott MD on 11/22/2020 12:41 PM PST Approved by: Edy Scott MD on 11/22/2020 12:41 PM PST Station ID: [id number]
--- NOTE | 2020-11-22 12:46 | CT Report ---
PROCEDURE: Abdomen/Pelvis W INDICATIONS: Fever of unknown origin. CONTRAST: IV CONTRAST: Optiray 320 ml: 100 PO CONTRAST: Isovue 300 ml50 TECHNIQUE: After the administration of intravenous contrast, 5 mm thick sections acquired from the diaphragms to the symphysis. 5 mm thick coronal and sagittal reformats were acquired. For radiation dose reducti on, the following was used: automated exposure control, adjustment of mA and/or kV according to enzo ent size. COMPARISON: 10/13/2017 CT angiogram of the abdomen. FINDINGS: Image quality: Excellent. ABDOMEN: Lung bases: Lung bases are clear. Heart size is normal. Solid organs: Status post cholecystectomy. Mild dilatation of the intrahepatic and extra hepatic bili lor ducts presumably representing postcholecystectomy reservoir phenomenon. Normal CT appearance of t he liver, spleen, pancreas, adrenal glands, and kidneys. Peritoneum and bowel: Enumerable sigmoid colonic diverticula. There are a few subtle areas of questio nable fat stranding and prominent but not obviously pathologically engorged vasa recta adjacent to a few of these diverticula. Small hiatal hernia with patulous distal esophagus. No abnormally dilated o r thickened loops of bowel. The appendix is unremarkable. No pericolonic or mesenteric inflammatory c hanges. Nodes and vessels: No retroperitoneal or mesenteric adenopathy by size criteria. Aorta and inferior vena cava are normal in size. Miscellaneous: No ventral hernias. PELVIS: Genitourinary: Bladder wall thickness is normal. Miscellaneous: No inguinal hernias or adenopathy. Bones: No suspicious bony lesions. No vertebral body compression fractures. IMPRESSION: Sigmoid diverticulosis with a few areas of and small foci of adjacent inflammatory change which raise suspicion for a low-grade diverticulitis in the appropriate clinical setting. Otherwise no acute infectious or inflammatory findings in the abdomen. Reviewed by: Edy Scott MD on 11/22/2020 12:45 PM PST Approved by: Edy Scott MD on 11/22/2020 12:45 PM PST Station ID: [id number]
[2020-11-22] MEDS ORDERED: IOPAMIDOL-300 50 ML VIAL PO ONE (13:45)
[2020-11-22] MEDS: cefTRIAXone 1 GM in SODIUM CHLORIDE 0.9% MINIBAG 100 ML IV SCH (14:37)
[2020-11-22] MEDS: AZITHROMYCIN INJ 500 MG in SODIUM CHLORIDE 0.9% 250 ML IV SCH (15:48)
[2020-11-23] MEDS: SODIUM CHLORIDE FLUSH 0.9% 10 ML SYRINGE IVP SCH ×3 (00:46→17:18)
[2020-11-23] MEDS: ACETAMINOPHEN 325 MG TABLET PO PRN (00:52)
[2020-11-23 05:07] LABS: BASOPHILS % (AUTO) 0.6 %; EOSINOPHILS % (AUTO) 0.6 %; HGB - HEMOGLOBIN 12.6 g/dL (12.0-16.0); LYMPHOCYTES # (AUTO) 1.2 10^3/uL (1.5-3.5); LYMPHOCYTES % (AUTO) 18.4 %; MEAN CORPUSCULAR HEMOGLOBIN 27.9 pg (27.0-31.0); MEAN CORPUSCULAR HGB CONC 31.9 g/dL (32.0-36.0); MEAN CORPUSCULAR VOLUME 87.6 fL (81.0-99.0); MEAN PLATELET VOLUME 10.6 fL (7.9-10.8); MONOCYTES # (AUTO) 0.8 10^3/uL (0.0-1.0); MONOCYTES % (AUTO) 12.7 %; NEUTROPHILS # (AUTO) 4.2 10^3/uL (1.5-6.6); NEUTROPHILS % (AUTO) 67.4 %; PLT - PLATELET COUNT 186 10^3/uL (130-450); RED BLOOD COUNT 4.51 10^6/uL (4.20-5.40); RED CELL DISTRIBUTION WIDTH 13.4 % (12.0-15.0); WHITE BLOOD COUNT 6.3 x10^3/uL (4.8-10.8)
[2020-11-23 05:19] LABS: CALCIUM 8.6 mg/dL (8.5-10.3); CREATININE 0.7 mg/dL (0.4-1.0)
[2020-11-23] MEDS ORDERED: FORMOTEROL FUMARATE NEB 20 MCG/2 ML INH SCH (07:04)
[2020-11-23] MEDS ORDERED: BUDESONIDE 0.5 MG/2 ML NEB INH SCH (07:04)
[2020-11-23] MEDS: ALBUTEROL NEB 2.5 MG/3 ML INH PRN (07:43)
[2020-11-23] MEDS: LACTATED RINGERS 1,000 ML IV SCH ×2 (08:25→21:59)
[2020-11-23] MEDS: AZITHROMYCIN INJ 500 MG in SODIUM CHLORIDE 0.9% 250 ML IV SCH (08:30)
[2020-11-23] MEDS: cefTRIAXone 1 GM in SODIUM CHLORIDE 0.9% MINIBAG 100 ML IV SCH (08:31)
--- NOTE | 2020-11-23 12:50 | PROVIDER PROGRESS NOTE ---
Subjective - Prog Note Date Prog Note Date: 11/23/20 Prog Note Time: 12:47 - Subjective Pt reports feeling: Improved Subjective: she is much better. more lucid. nml sentence structure. she recongnizes she has a memory problem with dates and times and is distressed but so much better than yesterday. She still had a temp to 39. Current Medications - Current Medications Current Medications: Active Medications Acetaminophen (Acetaminophen 325 Mg Tablet) 650 mg PO Q4HR PRN PRN Reason: Pain 1 to 4 Last Admin: 11/23/20 00:52 Dose: 650 mg Documented by: Albuterol (Albuterol Neb 2.5 Mg/3 Ml) 2.5 mg INH RTQ4H PRN PRN Reason: Wheezing Last Admin: 11/23/20 07:43 Dose: 2.5 mg Documented by: Azithromycin 500 mg/ Sodium (Chloride) 250 mls @ 250 mls/hr IV DAILY [facility] Stop: 11/24/20 09:59 Last Infusion: 11/23/20 10:50 Dose: Infused Documented by: Ceftriaxone Sodium 1 gm/ (Sodium Chloride) 100 mls @ 200 mls/hr IV DAILY [facility] Stop: 11/26/20 09:29 Last Infusion: 11/23/20 09:20 Dose: Infused Documented by: Lactated Ringer's (Lr) 1,000 mls @ 83.333 mls/hr IV .Q12H [facility] Last Infusion: 11/23/20 10:50 Dose: 83.333 mls/hr Documented by: Ondansetron HCl (Ondansetron 4 Mg/2 Ml Vial) 4 mg IVP Q6HR PRN PRN Reason: Nausea / Vomiting Ondansetron HCl (Ondansetron Odt 4 Mg Tablet) 4 mg TL Q6HR PRN PRN Reason: Nausea / Vomiting Sodium Chloride (Sodium Chloride Flush 0.9% 10 Ml Syringe) 10 ml IVP PRN PRN PRN Reason: NEEDED PER PROVIDER ORDERS Last Admin: 11/21/20 23:42 Dose: 10 ml Documented by: Sodium Chloride (Sodium Chloride Flush 0.9% 10 Ml Syringe) 10 ml IVP 0100,0900,1700 [facility] Last Admin: 11/23/20 08:32 Dose: 10 ml Documented by: Albuterol Sulfate [Proair Hfa Inhaler] 1 - 2 puffs INH Q4H PRN 08/19/16 Objective - Vital Signs/Intake & Output Reviewed Vital Signs: Yes Vital Signs: Vital Signs x48h Temp Pulse Pulse Resp BP Pulse Ox 11/23/20 11:49 37.6 C 87 16 138/76 H 95 11/23/20 08:05 36.8 C 86 18 150/88 H 99 11/23/20 07:43 80 16 11/23/20 05:54 36.9 C Intake & Output: Intake & Output 11/20/20 11/21/20 11/22/20 11/23/20 23:59 23:59 23:59 23:59 Intake Total 4237.333 1270 492.222 Output Total 1800 2450 600 Balance 2437.333 -1180 -107.778 - Objective General Appearance: positive: Alert, Other (on albuterol neb but refuses her LABA. Says she doesn't take it anymore and hasn't for a long time) Eyes Bilateral: positive: PERRL, EOMI ENT: positive: No signs of dehydration Neck: positive: No JVD. negative: Stiff neck Respiratory: positive: No respiratory distress, Wheezes, Rales, Other (faint wheeze high up lung rendon, w one stridor). negative: Rhonchi Cardiovascular: positive: Regular rate & rhythm, Systolic murmur. negative: Ga llop/S4, Friction rub Abdomen: positive: Non-tender, No organomegaly, Nml bowel sounds, No distention Skin: positive: Warm, Dry, Pallor Extremities: positive: Full ROM, No pedal edema - Lab Results Fish Bones: 11/23/20 04:37 11/23/20 04:37 Other Labs: Lab Results x24hrs 11/23/20 11/23/20 11/23/20 Range/Units 04:37 04:37 04:37 WBC 6.3 (4.8-10.8) x10^3/uL RBC 4.51 (4.20-5.40) 10^6/uL Hgb 12.6 (12.0-16.0) g/dL Hct 39.5 (37.0-47.0) % MCV 87.6 (81.0-99.0) fL MCH 27.9 (27.0-31.0) pg MCHC 31.9 L (32.0-36.0) g/dL RDW 13.4 (12.0-15.0) % Plt Count 186 (130-450) 10^3/uL MPV 10.6 (7.9-10.8) fL Neut # (Auto) 4.2 (1.5-6.6) 10^3/uL Lymph # (Auto) 1.2 L (1.5-3.5) 10^3/uL [place] # (Auto) 0.8 (0.0-1.0) 10^3/uL Eos # (Auto) 0.0 (0.0-0.7) 10^3/uL Baso # (Auto) 0.0 (0.0-0.1) 10^3/uL Absolute Nucleated RBC 0.00 x10^3/uL Nucleated RBC % 0.0 /100WBC Sodium 133 L (135-145) mmol/L Potassium 3.5 (3.5-5.0) mmol/L Chloride 94 L (101-111) mmol/L Carbon Dioxide 28 (21-32) mmol/L Anion Gap 11.0 (6-13) BUN 14 (6-20) mg/dL Creatinine 0.7 (0.4-1.0) mg/dL Estimated GFR (MDRD) 79 L (>89) Glucose 99 (70-100) mg/dL Calcium 8.6 (8.5-10.3) mg/dL TSH 1.45 (0.34-5.60) uIU/mL ABX Reporting Has patient been on IV antibiotics over the past 48 hours?: Yes Sepsis Event Note (H) - Evaluation Possible source of Sepsis: positive: Unknown - Sepsis Criteria Sepsis Criteria: Recorded Temperature greater than 38.3C or Less than 36C, [employer]: altered consciousness (unrelated to primary neuro pathology) Assessment/Plan - Problem List (1) Fever Impression: Etiology of fever is not clear at this time. There is no obvious source of infection. On admission, her inflammatory markers were within normal limits. She had no white count. Her urinalysis did not suggest infection. Her abdominal and musculoskeletal exam did not suggest an obvious source of in fection. She is confused and disoriented which may be related to fever or the use of narcotics. She did not have any meningeal signs so low suspicion for bacterial meningitis. She could potentially have a viral encephalitis as a source of her fever. She did not clear. Continue to have low-grade fevers, confusion and assess lumbar puncture was done. It was negative. Viral antigen checked and all negative. As such acyclovir stopped. Case discussed with her daughter. Lumbar puncture done November 21. Negative except for traumatic RBCs. However protein was high at 146. I then did a CT of chest abdomen and pelvis and she has changes a possible early pneumonia in the upper lung rendon. Also probably early changes of diverticulitis on CT but her abdominal exam is completely negative. Echocardiogram was done and completely normal. I repeated her inflammatory markers November 22. Rheumatoid factor was negative. White cell count continues to be normal. Sed rate was 17. TSH 1.45. LDH was 184, CK was 275. Repeat blood cultures done. So now blood cultures from November 20 and November 22 are negative. She was still very confused and more confused than admission yesterday. This morning she has cleared with regards to lucid speech pattern, but still febrile, and still disoriented to time. I decided to add antibiotics on the basis of the CT report. She continues to mcpherson ve fever but her mental status is improved. I have called [facility] infectious disease consult line twice now. No response from them. So now I have called [facility] infectious disease at [phone] to look for some advice. Plan is to continue her antibiotics. Follow-up with infectious disease consult. (2) Altered mental status Conclusion/Plan: We continue to be puzzled by her altered mental status and confusion. The initi al thought that it could be due to her narcotic use is no longer being entertained since she has not had narcotics for 2 days. Fever continues. One elevation of bilirubin but no elevation of other liver enzymes.She was started on antibiotics and that has helped. 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 Mainly centered around orientation. I looked at her ability to write a sentence and it is impaired. (3) History of reactive airway disease Conclusion/Plan: Continue with albuterol as needed.I have stopped the formoterol and the budesonide at her request.
[2020-11-24] MEDS: ACETAMINOPHEN 325 MG TABLET PO PRN (01:30)
[2020-11-24] MEDS: SODIUM CHLORIDE FLUSH 0.9% 10 ML SYRINGE IVP SCH ×3 (01:31→21:24)
[2020-11-24 05:11] LABS: BASOPHILS % (AUTO) 0.4 %; EOSINOPHILS # (AUTO) 0.2 10^3/uL (0.0-0.7); EOSINOPHILS % (AUTO) 3.3 %; LYMPHOCYTES # (AUTO) 1.6 10^3/uL (1.5-3.5); LYMPHOCYTES % (AUTO) 28.2 %; MEAN CORPUSCULAR HEMOGLOBIN 28.8 pg (27.0-31.0); MEAN CORPUSCULAR HGB CONC 32.9 g/dL (32.0-36.0); MEAN CORPUSCULAR VOLUME 87.5 fL (81.0-99.0); MEAN PLATELET VOLUME 10.4 fL (7.9-10.8); MONOCYTES # (AUTO) 0.8 10^3/uL (0.0-1.0); MONOCYTES % (AUTO) 13.8 %; NEUTROPHILS % (AUTO) 54.1 %; PLT - PLATELET COUNT 186 10^3/uL (130-450); RED BLOOD COUNT 4.17 10^6/uL (4.20-5.40); RED CELL DISTRIBUTION WIDTH 13.4 % (12.0-15.0); WHITE BLOOD COUNT 5.5 x10^3/uL (4.8-10.8)
[2020-11-24 05:21] LABS: CALCIUM 8.4 mg/dL (8.5-10.3); CREATININE 0.5 mg/dL (0.4-1.0)
[2020-11-24] MEDS: cefTRIAXone 1 GM in SODIUM CHLORIDE 0.9% MINIBAG 100 ML IV SCH (08:37)
[2020-11-24] MEDS ORDERED: POTASSIUM CHLORIDE 20 MEQ TABLET PO ONE (09:16)
[2020-11-24] MEDS: AZITHROMYCIN INJ 500 MG in SODIUM CHLORIDE 0.9% 250 ML IV SCH (09:50)
[2020-11-24] MEDS: LACTATED RINGERS 1,000 ML IV SCH (12:41)
[2020-11-24 13:11] LABS: ALBUMIN 3.7 g/dL (3.8-4.8); ALPHA 1 GLOBULIN 0.3 g/dL (0.2-0.3); ALPHA 2 GLOBULIN 0.7 g/dL (0.5-0.9); BETA 1 GLOBULIN 0.5 g/dL (0.4-0.6); BETA 2 GLOBULIN 0.3 g/dL (0.2-0.5); GAMMA GLOBULIN 1.2 g/dL (0.8-1.7)
--- NOTE | 2020-11-24 17:00 | PROVIDER PROGRESS NOTE ---
Subjective - Prog Note Date Prog Note Date: 11/24/20 Prog Note Time: 17:00 - Subjective Pt reports feeling: Improved Subjective: She is cheerful, sitting up in chair. Looking out the window. She tells me that she knows who I am. 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 She denies cough, chest pain, headache, blurred vision. She says she still does not have much appetite but was able to eat some of breakfast. Current Medications - Current Medications Current Medications: Active Medications Acetaminophen (Acetaminophen 325 Mg Tablet) 650 mg PO Q4HR PRN PRN Reason: Pain 1 to 4 Last Admin: 11/24/20 01:30 Dose: 650 mg Documented by: Albuterol (Albuterol Neb 2.5 Mg/3 Ml) 2.5 mg INH RTQ4H PRN PRN Reason: Wheezing Last Admin: 11/23/20 07:43 Dose: 2.5 mg Documented by: Ceftriaxone Sodium 1 gm/ (Sodium Chloride) 100 mls @ 200 mls/hr IV DAILY ALEXX Stop: 11/26/20 09:29 Last Infusion: 11/24/20 09:10 Dose: Infused Documented by: Lactated Ringer's (Lr) 1,000 mls @ 83.333 mls/hr IV .Q12H ALEXX Last Infusion: 11/24/20 15:48 Dose: 83.3 mls/hr Documented by: Ondansetron HCl (Ondansetron 4 Mg/2 Ml Vial) 4 mg IVP Q6HR PRN PRN Reason: Nausea / Vomiting Ondansetron HCl (Ondansetron Odt 4 Mg Tablet) 4 mg TL Q6HR PRN PRN Reason: Nausea / Vomiting Sodium Chloride (Sodium Chloride Flush 0.9% 10 Ml Syringe) 10 ml IVP PRN PRN PRN Reason: NEEDED PER PROVIDER ORDERS Last Admin: 11/21/20 23:42 Dose: 10 ml Documented by: Sodium Chloride (Sodium Chloride Flush 0.9% 10 Ml Syringe) 10 ml IVP 0100,0900,1700 ALEXX Last Admin: 11/24/20 08:37 Dose: 10 ml Documented by: Albuterol Sulfate [Proair Hfa Inhaler] 1 - 2 puffs INH Q4H PRN 08/19/16 Objective - Vital Signs/Intake & Output Reviewed Vital Signs: Yes Vital Signs: Vital Signs x48h Temp Pulse Resp BP Pulse Ox 11/24/20 15:36 37.3 C 93 18 174/83 H 93 Intake & Output: Intake & Output 11/21/20 11/22/20 11/23/20 11/24/20 23:59 23:59 23:59 23:59 Intake Total 4237.333 1270 2100.000 2089.618 Output Total 1800 2450 1350 1900 Balance 2437.333 -1180 750.000 189.618 - Objective General Appearance: positive: Alert, Other (5 foot 7 inch elderly female who weighs 72.5 kg) Eyes Bilateral: positive: EOMI ENT: positive: No signs of dehydration Neck: positive: No JVD. negative: Stiff neck Respiratory: positive: No respiratory distress. negative: Wheezes, Rales, Rhonchi Cardiovascular: positive: Regular rate & rhythm, Systolic murmur. negative: Gallop/S4, Friction rub Abdomen: positive: Non-tender, No organomegaly, Nml bowel sounds, No distention Skin: positive: Warm, Dry Extremities: positive: Non-tender, No pedal edema Neurologic/Psychiatric: positive: CN's nml (2-12), Motor nml, Disoriented to place, Disoriented to time, Other (In spite of improved alertness, improved speech patterns, improved lucidness, she is still disoriented to where she is and why she is here. Cannot remember what day it is. But she knows where she lives, is able to tell me her address today. Able to tell me her birthday.) - Lab Results Fish Bones: 11/24/20 04:55 11/24/20 04:55 Other Labs: Lab Results x24hrs 11/24/20 11/24/20 11/22/20 Range/Units 04:55 04:55 08:55 WBC 5.5 (4.8-10.8) x10^3/uL RBC 4.17 L (4.20-5.40) 10^6/uL Hgb 12.0 (12.0-16.0) g/dL Hct 36.5 L (37.0-47.0) % MCV 87.5 (81.0-99.0) fL MCH 28.8 (27.0-31.0) pg MCHC 32.9 (32.0-36.0) g/dL RDW 13.4 (12.0-15.0) % Plt Count 186 (130-450) 10^3/uL MPV 10.4 (7.9-10.8) fL Neut # (Auto) 3.0 (1.5-6.6) 10^3/uL Lymph # (Auto) 1.6 (1.5-3.5) 10^3/uL [place] # (Auto) 0.8 (0.0-1.0) 10^3/uL Eos # (Auto) 0.2 (0.0-0.7) 10^3/uL Baso # (Auto) 0.0 (0.0-0.1) 10^3/uL Absolute Nucleated RBC 0.00 x10^3/uL Nucleated RBC % 0.0 /100WBC Sodium 137 (135-145) mmol/L Potassium 3.4 L (3.5-5.0) mmol/L Chloride 98 L (101-111) mmol/L Carbon Dioxide 29 (21-32) mmol/L Anion Gap 10.0 (6-13) BUN 15 (6-20) mg/dL Creatinine 0.5 (0.4-1.0) mg/dL Estimated GFR (MDRD) 116 (>89) Glucose 103 H (70-100) mg/dL Calcium 8.4 L (8.5-10.3) mg/dL Mswo-6-Vsdtjpuz 0.5 (0.4-0.6) g/dL Ldoc-8-Gkndovna 0.3 (0.2-0.5) g/dL HALINA & SPEP Interp SEE NOTE Total Protein (HALINA) 6.6 (6.1-8.1) g/dL Albumin (HALINA) 3.7 L (3.8-4.8) g/dL Iasay-0-Plhjfeeni HALINA 0.3 (0.2-0.3) g/dL Zufww-1-Gyefdslyo HALINA 0.7 (0.5-0.9) g/dL Gamma Globulins (HALINA) 1.2 (0.8-1.7) g/dL ABX Reporting Has patient been on IV antibiotics over the past 48 hours?: Yes Sepsis Event Note (H) - Evaluation Possible source of Sepsis: positive: Unknown - Sepsis Criteria Sepsis Criteria: Recorded Temperature greater than 38.3C or Less than 36C, DIRECTOR OF RESEARCH: altered consciousness (unrelated to primary neuro pathology) Assessment/Plan - Problem List (1) Fever Impression: Etiology of fever Being attributed to pneumonia on the basis of the CT scan of the chest. On admission, her inflammatory markers were within normal limits. She had no white count. Her urinalysis did not suggest infection. Her abdomina l and musculoskeletal exam did not suggest an obvious source of infection. She is confused and disoriented which may be related to fever or the use of narcotics. She did not have any meningeal signs so low suspicion for bacterial meningitis. She could potentially have a viral encephalitis as a source of her fever. She did not clear. Continue to have low-grade fevers, confusion and assess l umbar puncture was done. It was negative. Viral antigen checked and all negative. As such acyclovir stopped. Case discussed with her daughter. Lumbar puncture done November 21. Negative except for traumatic RBCs. However protein was high at 146. I then did a CT of chest abdomen and pelvis and she has changes a possible early pneumonia in the upper lung rendon. Also probably early changes of diverticulitis on CT but her abdominal exam is completely negative. Echocardiogram was done and completely normal. I repeated her inflammatory markers November 22. Rheumatoid factor was negative. White cell count continues to be normal. Sed rate was 17. TSH 1.45. LDH was 184, CK was 275. Repeat blood cultures done. So now blood cultures from November 20 and November 22 are negative. She was still very confused and more confused than admission 11/22 But by November 23 she was starting to improve and had more lucid speech. Today she is even better. Smiling and laughing spontaneously. Anxious to get out of here. Does not really remember why she is here. I decided to add antibiotics 11/22 on the basis of the CT report. I have called [facility] infectious disease consult line twice , Once on November 22 and the second time on November 23. No response from them. So now I have called [facility] infectious disease at [phone] to look for some advice. We went over the case. The only thing she would have done differently was to do red cell count on 2 1 and 2 before. If red cells cleared by 2 4, it was a traumatic tap causing the red cells. If she had the same amount of red cells in tube for us to 1 we needed to consider the differential diagnosis of HSV. She also would have recommended a an MRI of the head. Cryptococcal antigen of CSF fluid and serum. However, over the course of yesterday she continued to be afebrile, improving with her orientation. This morning she is the best she has been. I will hold off on redoing a lumbar puncture, MRI. I have discussed the case with her daughter. Plan is for discharge tomorrow with ampicillin and azithromycin to complete antibiotic therapy. She will need a walker due to weakness. (2) Altered mental status Resolved Conclusion/Plan: The initial thought that it could be due to her narcotic use is no longer being entertained since she has not had narcotics for 3-4 days. Fever continued Until midnight November 23. She had a noticeable improvement in mentation once the fever stopped.. One elevation of bilirubin but no elevation of other liver en zymes.She was started on antibiotics and that has helped. Occupational Therapy saw her 11/23 and she is 20 out of 30 so she has mild to moderate cognitive deficits. Mainly centered around orientation. I looked at her ability to write a sentence and it is impaired. Daughter reports that mom has definitely been losing her memory over the last few years. Very subtle. Nothing terrible. But it is noticeable to the family. The main thing that has brought out is a concern about where mom is going to be if she loses too much memory. Mom is very insistent that she wants to stay at home. She has long-term care insurance. But she will not be able to stay at home and pay for in-home care. As such daughter will start making changes with regards to power of trust and estates attorney, financial planning, and reassessing what mom wants. (3) History of reactive airway disease Conclusion/Plan: Continue with albuterol as needed.I have stopped the formoterol and the budeso nide at her request.
[2020-11-24] MEDS ORDERED: MEROPENEM 500 MG in SODIUM CHLORIDE 0.9% MINIBAG 100 ML IV SCH (18:00)
[2020-11-25] MEDS: ALBUTEROL NEB 2.5 MG/3 ML INH PRN (00:18)
[2020-11-25] MEDS: ACETAMINOPHEN 325 MG TABLET PO PRN (01:51)
[2020-11-25 05:55] LABS: BASOPHILS % (AUTO) 0.6 %; EOSINOPHILS # (AUTO) 0.2 10^3/uL (0.0-0.7); EOSINOPHILS % (AUTO) 3.6 %; HGB - HEMOGLOBIN 11.5 g/dL (12.0-16.0); LYMPHOCYTES # (AUTO) 1.9 10^3/uL (1.5-3.5); MEAN CORPUSCULAR HEMOGLOBIN 28.3 pg (27.0-31.0); MEAN CORPUSCULAR VOLUME 88.2 fL (81.0-99.0); MEAN PLATELET VOLUME 10.5 fL (7.9-10.8); MONOCYTES # (AUTO) 0.7 10^3/uL (0.0-1.0); MONOCYTES % (AUTO) 10.2 %; NEUTROPHILS # (AUTO) 3.8 10^3/uL (1.5-6.6); NEUTROPHILS % (AUTO) 57.3 %; PLT - PLATELET COUNT 200 10^3/uL (130-450); RED BLOOD COUNT 4.07 10^6/uL (4.20-5.40); RED CELL DISTRIBUTION WIDTH 13.5 % (12.0-15.0); WHITE BLOOD COUNT 6.7 x10^3/uL (4.8-10.8)
[2020-11-25 06:02] LABS: CALCIUM 8.5 mg/dL (8.5-10.3); CREATININE 0.6 mg/dL (0.4-1.0)
[2020-11-25] MEDS: SODIUM CHLORIDE FLUSH 0.9% 10 ML SYRINGE IVP SCH ×2 (06:17→08:30)
--- NOTE | 2020-11-25 07:36 | Discharge Plan ---
Discharge Plan Problem Reviewed?: Yes Disposition: Home, Self Care Condition: Good Prescriptions: cefUROXime axetiL [Ceftin] 500 mg PO BID #8 tab Diet: Regular Activity Restrictions: Activity as Tolerated Shower Restrictions: No Driving Restrictions: Yes (no driving) Instruction Topics: Ceftriaxone injection Health Concerns: You have been complaining of left thigh pain and were seen in the emergency room 11/19/2019 and given a pain pill. You had also been seen for chest pain in the emergency room in September, and was seen by your primary care provider in late September for abdominal pain. The day After being seen in the emergency room you had fever and confusion. Because of that you came back to the emergency room November 21. When you have a fever, we usually associate that with either a viral infection or bacterial infection. We see a white cell count that is elevated. We see inflammatory proteins elevated with elevated C-reactive protein or elevated sedimentation rate. If you have pneumonia we usually see a low oxygen and an abnormal chest x-ray. If you have a urinary tract infection we see ba cteria in the urine. If you have appendicitis or gallbladder infection or diverticulitis we see abdominal pain. You were very puzzling to us. None of these were present. While you had a high fever and were obviously very confused, we found no source of infection on initial evaluation. We were worried about herpes simplex meningitis and put you on viral medication. It did not change your confusion and you continue to have fevers. We repeated the evaluation and still found no source. As such you underwent a lumbar puncture to make sure we were not missing an encephalitis or meningitis. The lumbar puncture had a high protein but not much else. No bacteria, no virus. Your CT of head was negative for stroke. Your echocardiogram of your heart looking for heart valve infection was negative. Blood cultures done 4 times and urine culture done once was negative. We did testing to make sure your immune system was working with a serum protein electrophoresis and that was normal. We look for inflammatory arthritis with a rheumatoid factor and that was normal. Covid swabbing was negative. We look for diseases such as leukemia or lymphoma they can give people fever and sweats. That was negative. We eventually ended up doing a CT of your chest, abdomen, and pelvis. The only thing we found was that of early mild pneumonia in the upper lung rendon of both lungs. You responded to antibiotics and the fever went away. The CT of the abdomen did show that you had possibly early diverticulitis. But your abdominal exam was completely negative. You were eating normally. Had normal bowel sounds. You have now been transitioned to antibiotics by mouth. While we are treating you as a pneumonia, please be aware that we are still very puzzled by your presentation. It was very atypical and we are not completely convinced about pneumonia. If you have recurrence of your fever, the diagnosis may change to fever of unknown origin. That may mean that you will have to come back to the emergency room and we would transfer you to another hospital that would have more specialty services such as infectious disease. Plan of Treatment: 1. Please see your primary care provider (Larissa Beal, Marcel Givens, or Harshal Kang) in follow-up. We strongly encourage you to be seen in the next week. They need to make sure that your mentation is returning to normal and that you do not have a fever. 2. We were completing your treatment for pneumonia by giving you Ceftin for the next 4 days. 3. If your fever and confusion do come back, please come to the emergency room but let the emergency room doctors know that you may need to be transferred to hospital such as [facility], or [facility] that has infectious disease specialty services. Care Goals: To return to your usual normal mentation, and remain in your home. Assessment: Patient has mild to moderate cognitive deficit. Her evaluation is a 20 out of a 30 through Occupational Therapy. Daughter is aware, case discussed with her, and she will follow through for mom. At this point in time mom will be going to go stay with daughter until she is safe to be alone in her own home. No Smoking: If you smoke, Please STOP! Call for help.
[2020-11-25 08:14] VITALS: BP 161/91
--- NOTE | 2020-11-25 10:29 | DISCHARGE SUMMARY ---
Discharge Summary Admit Date: 11/21/20 Discharge Date: 11/25/20 Discharging Provider: Monalisa Ward MD Primary Care Provider: STELLA Swift Code Status: Do Not Attempt Resuscitation Condition at Discharge: Good Discharge Disposition: 01 Home, Self Care - DIAGNOSES Discharge Diagnoses with Status of Each Condition: 1. Pneumonia 2. Possible fever unknown origin 3. Acute metabolic encephalopathy 4. Mild to moderate cognitive deficits at baseline 5. Asthma 6. Hypokalemia - HPI History of Present Illness: This is a 89-year-old female with a history of reactive airway disease who presents today from home after her daughter noticed that she has had progressive confusion and concerns for a fever. Most of the history is obtained from the patient's daughter and the ER provider as the patient is altered and is unable to provide a meaningful history. The patient was seen yesterday in the emergency department for left upper thigh pain which was felt to be a muscle strain. She was prescribed Vicodin which the patient reportedly took this morning at around 5 AM per the daughter and again at around 11 AM. The daughter then noticed the patient became increasingly confused had some difficulty with speech at times. She thought this was due to the Vicodin and so she just watched her mother over the next few hours. She states that her speech returned to normal but the patient continued to be confused which is unusual for her. She then felt like her mom was warm and was concerned for a fever. She did not have a thermometer at home so she did not measure her temperature. Given she was still confused and the new concern for fever, she called EMS. The patient's only complaint at this time is a mild headache. Denies any chest pain, dyspnea. Reports no muscle or joint pain. Denies abdominal pain, nausea, vomiting. The daughter does believe that her mother may have had Covid at the end of August as she had cold-like symptoms and intermittent chest pain. She was never tested. She states her mom does go out on a regular basis but to her knowledge, has had no recent sick contacts. She does note that her mother was complaining of some nasal congestion the past few days. In the emergency department, she was found to be febrile with a temperature of 39 C. Heart rate was in the 90s. Blood pressures in the 160s over 80s. She was not tachypneic and saturating 93% on room air. Labs were unremarkable. She had a normal white count as well as ESR and CRP. Lactic acid was also normal. Her urinalysis was unremarkable. She underwent a 2 view chest x-ray which showed no acute abnormalities. Respiratory PCR panel was unremarkable. Given her confusion and fever, medicine was consulted for admission. She did receive vancomycin, aztreonam, Flagyl IV empirically given the initial concern for sepsis. I did discuss goals of care with the patient's daughter as the patient is unable to make this medical decision for herself. 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 Head CT without any acute intracranial process 2. Chest x-ray without any acute process 3. Chest CT with subtle tree-in-bud nodularity in the right greater than left upper lobes and portions of the right lower lobe. These are increased when compared to September 29, 2020 CT angiogram of chest that was done for chest pain. This is presumably infectious/inflammatory in origin. 4. Abdomen pelvis CT with innumerable sigmoid colonic diverticula. There are a few subtle areas of questionable fat stranding and prominent but not obviously pathologically engorged vasa recti adjacent to these diverticuli. Small hiatal hernia with patulous distal esophagus. No abnormally dilated loops of bowel. Suspicion for low-grade diverticulitis in the appropriate clinical setting. 5. Blood cultures on November 20, November 22 are without growth. 6. CSF culture from November 21 is negative. It was a clear colorless fluid. 3 white cells seen. 350 red cells in tube #3. 61 glucose, 146 total protein. 7. Covid negative 8. Rheumatoid factor negative. Serum protein electrophoresis with isolated d ecrease in albumin. Suggestive of decreased protein synthesis or protein loss. Sed rate 20 and 17. White cell count always normal. TSH 1.45. LDH normal. CK mildly elevated at 275. Urinalysis negative. C-reactive protein less than 1. 9. Echocardiogram is compared to August 2016 echocardiogram. She has normal left ventricular size and function. Ejection fraction 65%. Left atrium normal. Mildly sclerotic aortic valve otherwise valve structures were normal and there were no vegetations seen. Normal right ventricular function. - HOSPITAL COURSE Hospital Course: The patient had high fevers with altered mental status. Initially she was pres ented to us as a patient who was completely independent, and completely sharp mentally. However daughter later admitted during her stay that the patient has been having some mild decline in cognitive function over the last couple of years. A little bit more forgetful, a little bit more stubborn personality. She began having groin and leg pain of unknown cause and was seen in the emergency room on November 19. She was sent home with [place]. Over the course of 12 hours she had 2 tablets. Daughter noted that mom seemed very sedated. And then after the second tablet developed fever. Daughter and son-in-law are convinced that somehow the [place] induced the fever. She was brought back to the emergency room on November 20, evening hours and then admitted November 21. She had a high fever to 39. Definitely altered, not lucid. Speech was stuttered, fragmented and unable to complete full sentences. But otherwise she had a completely negative neurological exam. Lab work was completely normal. For the first 24 hours we initially started her on acyclovir thinking that she might have herpes encephalitis. However lumbar puncture was noncontributory and acyclovir was stopped. We repeated CBC, CMP, blood cultures, sed rate, and they were all normal. She continued to have fevers. We then did CT chest abdomen and pelvis and found her to have very slight changes of diverticulitis but a completely negative abdominal exam. We started on empiric antibiotics for the "tree budding" appearance in the apices of her lungs. She seemed to respond to the antibiotics and that her fever broke, mentation gradually cleared over 48 hours and by the time of discharge she was oriented to place, person, still lagging behind on time. Speech was sequential sentences. Lucid. She was eating, walking in her room independently. As such are going to complete therapy for pneumonia. We are still not convinced that is what caused her fever of unknown origin considering all of her inflammatory markers and infectious markers were negative. As such she is discharged in stable condition. Temperature is 37, pulse is 65, blood pressure 161/91. Respirations 18. 94% saturated on room air. She is 5 foot 7 inches tall and weighs 72.5 kg. Alert, oriented pleasant elderly female. Neck is supple. Lungs are completely clear to auscultation and percussion without any increased respiratory effort. Very comfortable from a cardiopulmonary perspective. Regular rate and rhythm with a systolic ejection murmur. The abdomen was benign. Soft, nontender. She is having flatus, bowel movements, and not complaining of any abdominal complaints. Extremities are warm without clubbing cyanosis or edema. She is discharged in stable condition and greater than 35 minutes was spent coordinating discharge. I did explain to her and putting in the discharge plan that if she gets a fever again, she should return to the hospital. However at that time I would recommend transfer to a higher level of care to a facility that has infectious disease.She will need an MRI, possibly a repeat lumbar punct ure. She would also need to be evaluated for cryptococcal antigen in both serum and CSF. - ALLERGIES Allergies/Adverse Reactions: Allergies Allergy/AdvReac Type Severity Reaction Status Date / Time Penicillins Allergy Edema Verified 11/20/20 23:30 - MEDICATIONS Home Medications: Ambulatory Orders Medication Instructions Recorded Confirmed Albuterol Sulfate [Proair Hfa 1 - 2 puffs INH Q4H PRN 08/19/16 11/20/20 Inhaler] cefUROXime axetiL [Ceftin] 500 mg PO BID #8 tab 11/25/20 - LABS Result Diagrams: 11/25/20 05:15 11/25/20 05:15 - SEPSIS Possible source of Sepsis: Unknown Sepsis Criteria: Recorded Temperature greater than 38.3C or Less than 36C, PRODUCTION QUALITY MANAGER: altered consciousness (unrelated to primary neuro pathology)
== END 2020-11-25 12:05 | disposition home or self-care (01) | DRG 871 ==
LOC: EDUNIT# → ED 23:18 → MS2 11-21 01:22
PROVIDERS: ADMIT Internal Medicine; ATTEND Specialist
PROC: 009U3ZX Drainage of Spinal Canal, Percutaneous Approach, Diagnostic (ICD-10-PCS; principal; 2020-11-21)
DX: A41.9 Sepsis, unspecified organism (principal); R65.20 Severe sepsis without septic shock; J18.9 Pneumonia, unspecified organism; Z20.822 Contact with and (suspected) exposure to COVID-19; G93.41 Metabolic encephalopathy; R41.89 Other symptoms and signs involving cognitive functions and awareness; J45.909 Unspecified asthma, uncomplicated; E87.6 Hypokalemia; B02.9 Zoster without complications; Z66 Do not resuscitate; R41.82 Altered mental status, unspecified
CPT/HCPCS: 36415; 51701; 70450; 71046; 71260; 74177; 80048; 80053; 81003; 81599; 82550; 82945; 83605; 83615; 84155; 84157; 84165; 84443; 85025; 85610; 85651; 85730; 86038; 86140; 86430; 87040; 87070; 87205; 87631; 89051; 93306; 94640; 96365; 96368; 97165; 99285; A9270; J0133; J3370; J7120; Q9967; 0202U; 81001; 87086

== ENCOUNTER 2021-01-13 09:43 | Outpatient (CLI) | payer MEDICARE, OTHER ==
--- OUTSIDE RECORDS SUMMARY | 2021-01-22 22:20 | EXTERNAL MEDICAL SUMMARY RPT | Continuity of Care Document ---
:1930 Demographics Phone Unavailable Preferred Language Unknown Marital Status Unknown Congregation Affiliation Unknown Race Unknown Ethnic Group Unknown Author Organization [facility] Address [address] [place] [address] Phone Social History date description facility [phone]
== END 2021-01-13 23:59 | disposition critical access hospital (66) ==
LOC: EMS 09:43
PROVIDERS: ATTEND Emergency Medicine
DX: R42 Dizziness and giddiness (principal); M79.605 Pain in left leg
CPT/HCPCS: A0425; A0429

== ENCOUNTER 2021-01-13 10:21 | Emergency (ER) | payer MEDICARE, OTHER ==
--- NOTE | 2021-01-13 11:41 | XRAY Report ---
PROCEDURE: Knee 2 View LT INDICATIONS: fall from standing yesterday with swelling/pain TECHNIQUE: 2 views of the left knee(s) were acquired. COMPARISON: None. FINDINGS: Bones: No fractures or dislocations. No suspicious bony lesions. There is moderate medial femorotibial joint space narrowing, with associated degenerative change with subchondral sclerosis and osteophyte formation. Soft tissues: There is a mild joint effusion. Calcification seen along the joint line, which is attri buted to meniscal calcification. IMPRESSION: No acute bony abnormality is seen by plain film. Reviewed by: Naresh Langford MD on 01/13/2021 10:39 AM [place] Approved by: Naresh Langford MD on 01/13/2021 10:39 AM [place] Station ID: [id number]
--- NOTE | 2021-01-13 11:54 | CT Report ---
PROCEDURE: HEAD WO INDICATIONS: fall yesterday +HT no loc from standing TECHNIQUE: Noncontrast 4.5 mm thick angled axial sections acquired from the foramen magnum to the vertex. For r adiation dose reduction, the following was used: automated exposure control, adjustment of mA and/or kV according to patient size. COMPARISON: 06/04/2017, 11/21/2020 FINDINGS: Image quality: Excellent. CSF spaces: Basal cisterns are patent. No extra-axial fluid collections. Ventricles are normal in size and shape. Brain: No midline shift. No intracranial masses or hemorrhage. Christy-white matter interface is norm al. Skull and face: Calvarium and visualized facial bones are intact, without suspicious lesions. Sinuses: Visualized sinuses and mastoids are clear. IMPRESSION: Unremarkable intracranial study for age, without an imaging expiration found for the patient's presen ting symptoms. No intracranial hemorrhage is seen. Note: Dr. Li was not available to discuss this case at the time of this dictation. Findings relay ed to Dr. Li via ER staff, [place], at 10:58 AM [place] time on 01/13/2021. Reviewed by: Naresh Langford MD on 01/13/2021 10:52 AM [place] Approved by: Naresh Langford MD on 01/13/2021 10:52 AM [place] Station ID: [id number]
--- NOTE | 2021-01-13 12:55 | ED Physician Documentation ---
History of Present Illness - Stated complaint Stated Complaint: GLF - Chief complaint Chief Complaint: Neuro - History obtained from History obtained from: Patient - Additonal information Additional information: 89-year-old woman with past medical history of frequent falls presents with ground-level fall last night with head trauma onto carpet with no LOC. Patient states that 6 weeks ago she was hospitalized with shingles to her left leg and since that time she has had some weakness of the leg and pain. She is using a knee brace with assistance. Denies fevers, worsening pain, injury to the leg or other injuries. She was encouraged to be brought in by her daughter. Review of Systems Ten Systems: 10 systems reviewed and negative Constitutional: denies: Fever Musculoskeletal: reports: Extremity pain. denies: Neck pain Neurologic: reports: Head injury. 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: None : None HEENT: None, Other Psych: None Musculoskeletal: Osteoarthritis Derm: Herpes zoster, Other - Past Surgical History Past Surgical History: Yes General: Cholecystectomy /NEWSPAPER ILLUSTRATOR: Hysterectomy HEENT: Other - Present Medications Home Medications: Ambulatory Orders Medication Instructions Recorded Confirmed Albuterol Sulfate [Proair Hfa 1 - 2 puffs INH Q4H PRN 08/19/16 01/13/21 Inhaler] Diclofenac Sodium [Voltaren 20 gm TP QID 01/13/21 01/13/21 Arthritis Pain] Gabapentin [Neurontin] 200 mg PO TID 01/13/21 01/13/21 - Allergies Allergies/Adverse Reactions: Allergies Allergy/AdvReac Type Severity Reaction Status Date / Time Penicillins Allergy Edema Verified 01/13/21 10:31 - Social History Does the pt smoke?: No Smoking Status: Never smoker Does the pt drink ETOH?: No Does the pt have substance abuse?: No - Immunizations Immunizations are current?: No Immunizations: TDAP >10years/unknown PD ED PE NORMAL - Vitals Vital signs reviewed: Yes - General General: Alert and oriented X 3, No acute distress, Well developed/nourished - HEENT HEENT: Atraumatic, PERRL, EOMI - Neck Neck: Supple, no meningeal sign, No bony TTP - Cardiac Cardiac: RRR - Respiratory Respiratory: No respiratory distress, Clear bilaterally - Abdomen Abdomen: Non tender, Non distended, Other (pelvis stable) - Back Back: No spinal TTP - Derm Derm: Normal color, Warm and dry, Other (mild rash to L anterior mora) - Extremities Extremities: No deformity - Neuro Neuro: Alert and oriented X 3, site inspector 2-12 intact, No motor deficit, No sensory deficit - Psych Psych: Normal mood, Normal affect Results - Vitals Vitals: Vital Signs - 24 hr 01/13/21 01/13/21 01/13/21 10:25 11:18 13:04 Temperature 35.7 C L 36.2 C L 36.9 C Heart Rate 74 60 64 Respiratory 16 18 18 Rate Blood Pressure 172/92 H 163/79 H 176/86 H O2 Saturation 98 96 96 Oxygen O2 Source Room air PD MEDICAL DECISION MAKING - ED course ED course: 89-year-old woman presented with left knee pain status post fall as well as head trauma yesterday. CT and x-ray noncontributory. Discussed with patient and conservative measures were discussed. Strict return precautions given. She will follow up with her primary doctor. Her daughter can come help her in the home over the next few days. Departure - Departure Disposition: Home, Self Care Clinical Impression: Fall from standing, Knee pain, left Condition: Good Instructions: ED Contusion Lower Ext, ED RICE Follow-Up: Fabio Bojorquez MD [Provider Admit Priv/Credential] - Comments: You were seen in the emergency department for left knee pain and for head trauma from a fall yesterday. Your head CT did not show any signs of bleeding or severe injury. Your left knee x-ray did show some fluid buildup in the joint that is probably from the fall. If you develop redness, swelling, fevers or severe pain in the knee then please return to the emergency department immediately. If you develop any symptoms of concussion or have any new or worse chris symptoms or other concerns and please also return. Follow-up with your primary doctor this week. If your knee pain does not improve with conservative measures (see information sheet about RICE) then you may need to see a doctor addition, or orthopedic surgeon. Take Tylenol 650 mg every 6 hours as needed for pain. Discharge Date/Time: 01/13/21 13:22
[2021-01-13 13:05] VITALS: BP 176/86
== END 2021-01-13 13:22 | disposition home or self-care (01) ==
LOC: EDUNIT# → ED 10:21
DX: M25.562 Pain in left knee (principal); S09.90XA Unspecified injury of head, initial encounter; W18.30XA Fall on same level, unspecified, initial encounter; Z91.81 History of falling
CPT/HCPCS: 99282; 99284

== ENCOUNTER 2021-01-13 23:04 | Outpatient (CLI) | payer MEDICARE, OTHER ==
--- OUTSIDE RECORDS SUMMARY | 2021-01-22 20:52 | EXTERNAL MEDICAL SUMMARY RPT | Continuity of Care Document ---
:1930 Demographics Phone Unavailable Preferred Language Unknown Marital Status Unknown Anabaptist Affiliation Unknown Race Unknown Ethnic Group Unknown Author Organization [facility] Address [address] [place] [address] Phone Social History date description facility [phone]
== END 2021-01-13 23:05 | disposition critical access hospital (66) ==
LOC: EMS 23:04
PROVIDERS: ATTEND Emergency Medicine
DX: R42 Dizziness and giddiness (principal)
CPT/HCPCS: A0425; A0429

== ENCOUNTER 2021-01-13 23:40 | Emergency (ER) | payer MEDICARE, OTHER ==
[2021-01-14 00:22] LABS: BASOPHILS % (AUTO) 0.5 %; EOSINOPHILS # (AUTO) 0.2 10^3/uL (0.0-0.7); EOSINOPHILS % (AUTO) 3.3 %; HCT - HEMATOCRIT 38.6 % (37.0-47.0); HGB - HEMOGLOBIN 12.1 g/dL (12.0-16.0); LYMPHOCYTES # (AUTO) 1.5 10^3/uL (1.5-3.5); LYMPHOCYTES % (AUTO) 26.2 %; MEAN CORPUSCULAR HEMOGLOBIN 28.3 pg (27.0-31.0); MEAN CORPUSCULAR HGB CONC 31.3 g/dL (32.0-36.0); MEAN CORPUSCULAR VOLUME 90.2 fL (81.0-99.0); MEAN PLATELET VOLUME 10.4 fL (7.9-10.8); MONOCYTES # (AUTO) 0.7 10^3/uL (0.0-1.0); MONOCYTES % (AUTO) 12.7 %; NEUTROPHILS # (AUTO) 3.2 10^3/uL (1.5-6.6); NEUTROPHILS % (AUTO) 56.9 %; PLT - PLATELET COUNT 267 10^3/uL (130-450); RED BLOOD COUNT 4.28 10^6/uL (4.20-5.40); RED CELL DISTRIBUTION WIDTH 14.7 % (12.0-15.0); WHITE BLOOD COUNT 5.7 x10^3/uL (4.8-10.8)
--- NOTE | 2021-01-14 00:29 | ED Physician Documentation ---
History of Present Illness - Stated complaint Stated Complaint: DIZZINESS - Chief complaint Chief Complaint: Neuro - History obtained from History obtained from: Patient - History of Present Illness Timing: Enter time (20:00) Pain level max: 0 Pain level now: 0 Improved by: rest Worsened by: standing, ambulating - Additonal information Additional information: T+R from this ED earlier today for fall. Tonight at approximately 8 PM, patient stood from chair at home and became lightheaded, had generalized weakness, mild nausea, felt like she might pass out. she sat back down and 911 was called by family. on EMS arrival, patient felt improved but had ongoing dizziness. medics noted frequent PACs and recommended transport to ED which patient was agreeable to. while awaiting my evaluation, patient had resolution of symptoms and is asymptomatic on my HPI Review of Systems Constitutional: reports: Reviewed and negative Eyes: reports: Reviewed and negative Cardiac: reports: Reviewed and negative Respiratory: reports: Reviewed and negative GI: reports: Nausea. denies: Abdominal Pain, Abdominal Swelling, Vomiting : denies: Dysuria, Frequency Neurologic: reports: Generalized weakness, Near syncope. denies: Focal weakness, Numbness, Confused, Altered mental status, Headache PD PAST MEDICAL HISTORY - Past Medical History Past Medical History: Yes Cardiovascular: None Respiratory: Asthma Neuro: Other Endocrine/Autoimmune: None GI: GERD FRIT MIXER: None : None HEENT: None, Other Psych: None Musculoskeletal: Osteoarthritis Derm: Herpes zoster, Other Other Past Medical History: Shingles - Past Surgical History Past Surgical History: Yes General: Cholecystectomy /FRIT MIXER: Hysterectomy HEENT: Other - Present Medications Home Medications: Ambulatory Orders Medication Instructions Recorded Confirmed Gabapentin [Neurontin] 200 mg PO TID 01/13/21 01/14/21 - Allergies Allergies/Adverse Reactions: Allergies Allergy/AdvReac Type Severity Reaction Status Date / Time Penicillins Allergy Edema Verified 01/13/21 23:48 - Social History Does the pt smoke?: No Smoking Status: Never smoker Does the pt drink ETOH?: No Does the pt have substance abuse?: No - Immunizations Immunizations are current?: No Immunizations: TDAP >10years/unknown - POLST Patient has POLST: No PD ED PE NORMAL - Vitals Vital signs reviewed: Yes - General General: Alert and oriented X 3, No acute distress, Well developed/nourished - HEENT HEENT: PERRL, EOMI, Moist mucous membranes - Neck Neck: Supple, no meningeal sign - Cardiac Cardiac: RRR, No murmur - Respiratory Respiratory: No respiratory distress, Clear bilaterally - Abdomen Abdomen: Soft, Non tender - Derm Derm: Normal color, Warm and dry - Extremities Extremities: Normal ROM s pain, No edema - Neuro Neuro: Alert and oriented X 3, career developer 2-12 intact, No motor deficit, No sensory deficit, Normal speech Eye Opening: Spontaneous Motor: Obeys Commands Verbal: Oriented GCS Score: 15 Results - Vitals Vitals: Vital Signs - 24 hr 01/14/21 01/14/21 02:00 02:39 Temperature 97.8 C H Heart Rate 68 71 Respiratory 15 19 Rate Blood Pressure 157/77 H 171/75 H O2 Saturation 97 97 Oxygen O2 Source Room air - EKG (time done) No standard instances Rate: Rate (enter#) (75) Rhythm: NSR, LAE [place]: Normal Intervals: Normal [place] QRS: Normal Ischemia: Normal ST segments Computer interpretation: Disagree with computer (no ST elevation noted) - Labs Labs: Laboratory Tests 01/14/21 01/14/21 01/14/21 00:00 00:00 00:00 WBC 5.7 RBC 4.28 Hgb 12.1 Hct 38.6 MCV 90.2 MCH 28.3 MCHC 31.3 L RDW 14.7 Plt Count 267 MPV 10.4 Neut # (Auto) 3.2 Lymph # (Auto) 1.5 [place] # (Auto) 0.7 Eos # (Auto) 0.2 Baso # (Auto) 0.0 Absolute Nucleated RBC 0.00 Nucleated RBC % 0.0 Sodium 134 L Potassium 4.3 Chloride 99 L Carbon Dioxide 29 Anion Gap 6.0 BUN 25 H Creatinine 0.7 Estimated GFR (MDRD) 79 L Glucose 95 Calcium 8.8 Total Bilirubin 0.6 AST 21 ALT 20 Alkaline Phosphatase 62 Troponin I High Sens 6.9 Total Protein 6.9 Albumin 3.8 Globulin 3.1 Albumin/Globulin Ratio 1.2 Lipase 62 H Urine Color Urine Clarity Urine pH Ur Specific [place] Urine Protein Urine Glucose (UA) Urine Ketones Urine Occult Blood Urine Nitrite Urine Bilirubin Urine Urobilinogen Ur Leukocyte Esterase Ur Microscopic Review Urine Culture Comments 01/14/21 00:54 WBC RBC Hgb Hct MCV MCH MCHC RDW Plt Count MPV Neut # (Auto) Lymph # (Auto) [place] # (Auto) Eos # (Auto) Baso # (Auto) Absolute Nucleated RBC Nucleated RBC % Sodium Potassium Chloride Carbon Dioxide Anion Gap BUN Creatinine Estimated GFR (MDRD) Glucose Calcium Total Bilirubin AST ALT Alkaline Phosphatase Troponin I High Sens Total Protein Albumin Globulin Albumin/Globulin Ratio Lipase Urine Color YELLOW Urine Clarity CLEAR Urine pH 6.5 Ur Specific [place] 1.015 Urine Protein NEGATIVE Urine Glucose (UA) NEGATIVE Urine Ketones NEGATIVE Urine Occult Blood NEGATIVE Urine Nitrite NEGATIVE Urine Bilirubin NEGATIVE Urine Urobilinogen 0.2 (NORMAL) Ur Leukocyte Esterase NEGATIVE Ur Microscopic Review NOT INDICATED Urine Culture Comments NOT INDICATED PD MEDICAL DECISION MAKING - ED course Complexity details: reviewed results, re-evaluated patient, considered differential, d/w patient Departure - Departure Disposition: 01 Home, Self Care Clinical Impression: Near syncope Condition: Good Instructions: ED Near Syncope Unkn Follow-Up: Marcel Givens MD [Primary Care Provider] - Within 1 week Discharge Date/Time: 01/14/21 02:45
[2021-01-14 00:32] LABS: ALBUMIN 3.8 g/dL (3.2-5.5); ALBUMIN/GLOBULIN RATIO 1.2 (1.0-2.2); BILIRUBIN,TOTAL 0.6 mg/dL (0.2-1.0); CALCIUM 8.8 mg/dL (8.5-10.3); CREATININE 0.7 mg/dL (0.4-1.0); POTASSIUM 4.3 mmol/L (3.5-5.0); TOTAL PROTEIN 6.9 g/dL (6.7-8.2)
[2021-01-14] MEDS ORDERED: SODIUM CHLORIDE 0.9% 500 ML IV STA (00:54)
[2021-01-14 01:08] LABS: BILIRUBIN,URINE NEGATIVE (NEGATIVE); CLARITY,URINE CLEAR (CLEAR); GLUCOSE, URINE (UA) NEGATIVE (NEGATIVE); KETONES,URINE (UA) NEGATIVE (NEGATIVE); LEUKOCYTE ESTERASE, URINE NEGATIVE (NEGATIVE); NITRITE,URINE NEGATIVE (NEGATIVE); OCCULT BLOOD,URINE NEGATIVE (NEGATIVE); PH,URINE 6.5 PH (5.0-7.5); PROTEIN,URINE NEGATIVE (NEGATIVE); UROBILINOGEN,URINE 0.2 (NORMAL) E.U./dL (NORMAL)
[2021-01-14 02:40] VITALS: BP 171/75
== END 2021-01-14 02:45 | disposition home or self-care (01) ==
LOC: EDUNIT# → ED 23:40
DX: R55 Syncope and collapse (principal); R53.1 Weakness; I49.1 Atrial premature depolarization
CPT/HCPCS: 36415; 80053; 81001; 81003; 83690; 84484; 85025; 87086; 93005; 99284

== ENCOUNTER 2021-03-19 08:00 | Outpatient (CLI) | payer MEDICARE, OTHER ==
--- NOTE | 2021-03-19 12:34 | XRAY Report ---
PROCEDURE: Shoulder 3 View BILAT INDICATIONS: FALL WITH BILATERAL SHOULDER PAIN TECHNIQUE: 3 views of the shoulder were acquired. COMPARISON: None. FINDINGS: Bones: No fractures or dislocations. No suspicious bony lesions. Visualized ribs appear intact. Soft tissues: No suspicious soft tissue calcifications. IMPRESSION: No visualized acute fracture or dislocation. However, occult injury cannot be excluded. Recommend short interval imaging follow-up in 7-10 days as clinically indicated for additional evalua tion. Reviewed by: Elisabeth Owusu MD on 03/19/2021 12:33 PM PDT Approved by: Elisabeth Owusu MD on 03/19/2021 12:33 PM PDT Station ID: [id number]
[2021-03-19 15:55] LABS: ALBUMIN 4.2 g/dL (3.2-5.5); ALBUMIN/GLOBULIN RATIO 1.3 (1.0-2.2); BILIRUBIN,TOTAL 0.6 mg/dL (0.2-1.0); CALCIUM 9.3 mg/dL (8.5-10.3); CREATININE 0.7 mg/dL (0.4-1.0); POTASSIUM 4.2 mmol/L (3.5-5.0); TOTAL PROTEIN 7.5 g/dL (6.7-8.2)
== END 2021-03-19 23:59 | disposition home or self-care (01) ==
LOC: DI.S 08:00
PROVIDERS: ATTEND Physician Assistant Medical
DX: M25.511 Pain in right shoulder (principal); R29.6 Repeated falls
CPT/HCPCS: 36415; 80053

== ENCOUNTER 2021-08-16 21:13 | Outpatient (CLI) | payer MEDICARE, OTHER | END 2021-08-16 21:14 | disposition EMS.NT | LOC: EMS 21:13 | DX: I10 Essential (primary) hypertension (principal) ==

== ENCOUNTER 2021-09-11 11:53 | Outpatient (CLI) | payer MEDICARE, OTHER | END 2021-09-11 11:54 | disposition EMS.NT | LOC: EMS 11:53 | DX: R53.1 Weakness (principal); R55 Syncope and collapse ==

== ENCOUNTER 2022-01-02 21:54 | Outpatient (CLI) | payer MEDICARE, OTHER | END 2022-01-02 21:55 | disposition EMS.NT | LOC: EMS 21:54 | DX: I10 Essential (primary) hypertension (principal) ==

== ENCOUNTER 2022-02-16 16:14 | Outpatient (CLI) | payer MEDICARE, OTHER | END 2022-02-16 16:15 | disposition short-term general hospital (02) | LOC: EMS 16:14 | DX: R07.89 Other chest pain (principal); R06.02 Shortness of breath | CPT/HCPCS: A0425; A0427 ==